=== PATIENT | female | born 1955 | race American Indian/Alaskan Native ===

== ENCOUNTER 2017-03-07 06:30 | Emergency (ER) | payer MEDICARE ==
[2017-03-07 07:29] VITALS: BP 178/81
[2017-03-07] MEDS ORDERED: TYLENOL #3 PO ONE (08:32)
--- NOTE | 2017-03-07 08:38 | Emergency Department Report ---
ED General Adult HPI - General Chief complaint: Extremity Injury, Upper Stated complaint: RIGHT SHOULDER PAIN Time Seen by Provider: 03/07/17 08:11 Source: patient Mode of arrival: Ambulatory Limitations: No Limitations - History of Present Illness Initial comments: This is a 61-year-old female nontoxic, well nourished in appearance, no acute signs of distress presents to the ED with c/o of pain to the surgical site status post dialysis catheter placement that was placed on . Patient stated after the surgery she was never received any pain medication and stated that pain is causing her to unable to sleep. Patient denies any fever, chills, redness in the area. Patient denies any chest pain, shortness of breath, numbness, tingling, headache, or stiff neck. Patient denies any allergies. Past medical history includes hypertension, diabetes. Patient stated dialysis have used the catheter twice already what last time being yesterday with no complication. MD Complaint: Pain -: days(s) (4) Radiation: non-radiation Severity scale (0 -10): 8 Quality: aching Consistency: constant Improves with: none Worsens with: none Associated Symptoms: denies other symptoms. denies: confusion, chest pain, cough, diaphoresis, fever/chills, headaches, loss of appetite, malaise, nausea/ vomiting, rash, seizure, shortness of breath, syncope, weakness Treatments Prior to Arrival: none - Related Data Home Medications Medication Instructions Recorded Confirmed Last Taken glipiZIDE [Glucotrol] 5 mg PO QDAY 10/11/12 03/26/15 03/26/15 Previous Rx's Medication Instructions Recorded Last Taken Type ALBUTEROL Inhaler [ProAir HFA 2 puff IH QID PRN #1 inha 02/22/13 Unknown Rx Inhaler] Acetaminophen/Codeine [Tylenol 1 tab PO Q6H PRN #12 tab 03/07/17 Unknown Rx /Codeine # 3 tab] Allergies Allergy/AdvReac Type Severity Reaction Status Date / Time No Known Allergies Allergy Unverified 10/11/12 14:17 ED Review of Systems ROS: Stated complaint: RIGHT SHOULDER PAIN Other details as noted in HPI Constitutional: denies: chills, fever Eyes: denies: eye pain, eye discharge, vision change ENT: denies: ear pain, throat pain Respiratory: denies: cough, shortness of breath, wheezing Cardiovascular: denies: chest pain, palpitations Endocrine: no symptoms reported Gastrointestinal: denies: abdominal pain, nausea, diarrhea Genitourinary: denies: urgency, dysuria, discharge Musculoskeletal: denies: back pain, joint swelling, arthralgia Skin: denies: rash, lesions Neurological: denies: headache, weakness, paresthesias Psychiatric: denies: anxiety, depression Hematological/Lymphatic: denies: easy bleeding, easy bruising ED Past Medical Hx - Past Medical History Previous Medical History?: Yes Hx Hypertension: Yes Hx Diabetes: Yes Hx Renal Disease: Yes (dialysis MWF) Additional medical history: dialysis MWF, last treatment Wednesday - Surgical History Past Surgical History?: Yes Additional Surgical History: Ortho, RUE fistula - Social History Smoking Status: Never Smoker Substance Use Type: None - Medications Home Medications: Home Medications Medication Instructions Recorded Confirmed Last Taken Type glipiZIDE [Glucotrol] 5 mg PO QDAY 10/11/12 03/26/15 03/26/15 History ALBUTEROL Inhaler [ProAir HFA 2 puff IH QID PRN #1 inha 02/22/13 03/26/15 Unknown Rx Inhaler] Acetaminophen/Codeine [Tylenol 1 tab PO Q6H PRN #12 tab 03/07/17 Unknown Rx /Codeine # 3 tab] ED Physical Exam - General Limitations: No Limitations General appearance: alert, in no apparent distress - Head Head exam: Present: atraumatic, normocephalic - Eye Eye exam: Present: normal appearance Pupils: Present: normal accommodation - ENT ENT exam: Present: mucous membranes moist - Neck Neck exam: Present: normal inspection - Respiratory Respiratory exam: Present: normal lung sounds bilaterally. Absent: respiratory distress - Cardiovascular Cardiovascular Exam: Present: regular rate, normal rhythm. Absent: systolic murmur, diastolic murmur, rubs, gallop - GI/Abdominal GI/Abdominal exam: Present: soft, normal bowel sounds - Extremities Exam Extremities exam: Present: normal inspection - Back Exam Back exam: Present: normal inspection - Neurological Exam Neurological exam: Present: alert, oriented X3 - Psychiatric Psychiatric exam: Present: normal affect, normal mood - Skin Skin exam: Present: warm, dry, intact, normal color. Absent: rash - Other Other exam information: Dialysis catheter with 2 lumens to the right chest with no signs of any cellulitis, redness, or purulent drainage. Tender to touch at the site region. ED Course Vital Signs 03/07/17 07:27 Temperature 98.4 F Pulse Rate 80 Respiratory 18 Rate Blood Pressure 178/81 O2 Sat by Pulse 99 Oximetry - Reevaluation(s) Reevaluation #1: 03/07/17 08:37 Patient is speaking in full sentences with no signs of distress noted. ED Medical Decision Making - Medical Decision Making This is a 61-year-old female that presents with pain to the dialysis catheter site. Patient is stable and was examined by me. Patient received Tylenol 3 in the ED. Patient's which is at the bedside stated he will just the patient home after discharge due to drowsiness of Tylenol 3. I will treat patient with Tylenol 3 at discharge. Patient was instructed Follow-up with a primary care doctor in 3-5 days or if symptoms worsen and continue return to emergency room as soon as possible. At time time of discharge, the patient does not seem toxic or ill in appearance. No acute signs of distress noted. Patient agrees to discharge treatment plan of care. No further questions noted by the patient. Critical care attestation.: If time is entered above; I have spent that time in minutes in the direct care of this critically ill patient, excluding procedure time. ED Disposition Clinical Impression: Pain, postoperative, acute Disposition: DC-01 TO HOME OR SELFCARE Is pt being admited?: No Does the pt Need Aspirin: No Condition: Stable Instructions: Acetaminophen/Codeine (By mouth) Additional Instructions: Follow-up with a primary care doctor in 3-5 days or if symptoms worsen and continue return to emergency room as soon as possible. Do not operate any machinery after discharge and when to take Tylenol 3 to drowsiness. Prescriptions: Acetaminophen/Codeine [Tylenol /Codeine # 3 tab] 1 tab PO Q6H PRN #12 tab PRN Reason: Pain Referrals: PRIMARY CAREMD [Primary Care Provider] - 3-5 Days DAVID REY MD [Staff Physician] - 3-5 Days [facility] [Outside] - 3-5 Days [facility] - [facility]-5 Days Forms: Work/School Release Form(ED)
== END 2017-03-07 09:02 | disposition home or self-care (01) ==
LOC: ED 06:30
DX: T82.848A Pain due to vascular prosthetic devices, implants and grafts, initial encounter (principal); M25.511 Pain in right shoulder; E11.22 Type 2 diabetes mellitus with diabetic chronic kidney disease; I12.0 Hypertensive chronic kidney disease with stage 5 chronic kidney disease or end stage renal disease; N18.6 End stage renal disease
CPT/HCPCS: 99282

== ENCOUNTER 2018-12-27 01:12 | Inpatient (IN) | payer MEDICARE ==
--- NOTE | 2018-12-27 01:38 | Emergency Department Report ---
ED General Adult HPI - General Chief complaint: Arrhythmia/Palpitations Stated complaint: CHEST PAIN Time Seen by Provider: 12/27/18 01:30 Source: patient, EMS ( EMS documentation not available at time of chart dictation ), RN notes reviewed, old records reviewed Mode of arrival: Stretcher Limitations: Physical Limitation - History of Present Illness Initial comments: Primary care DrRocio: Patient can't remember Project/Production Manager Imaging: Dr. Iris Cormier Past medical history: Hypertension, diabetes, end-stage renal disease, on hemodialysis, Wednesday, , Wednesday. It is currently Wednesday morning, she reports her last episode of hemodialysis was on Wednesday. The patient is a 63-year-old female. The patient is not known to this provider previously. Patient presents to the ER with complaint of chest wall pain, cough, nausea, shortness of breath. Symptoms have been going on for the past couple hours. They're constant. Shortness of breath increases with exertion and laying flat. She has chronic 3 pillow orthopnea. There is no complaint of headache, neck pain, lower abdominal pain. There are no episodes of hematemesis described. There are no urinary symptoms. No posterior leg pain or leg swelling. Positive recent trip to [place] a few weeks ago. No oral contraceptive use. She doesn't know if she takes systemic anticoagulation. She denies dietary indiscretions and endorses compliance with her outpatient medications. -: Gradual Location: chest Radiation: non-radiation Quality: aching Consistency: constant Improves with: other Worsens with: other Associated Symptoms: other - Related Data Home Medications Medication Instructions Recorded Confirmed Last Taken glipiZIDE [Glucotrol] 5 mg PO QDAY 10/11/12 03/26/15 03/26/15 Previous Rx's Medication Instructions Recorded Last Taken Type ALBUTEROL Inhaler (OR & NICU) 2 puff IH QID PRN #1 inha 02/22/13 Unknown Rx [ProAir HFA Inhaler] Acetaminophen/Codeine [Tylenol 1 tab PO Q6H PRN #12 tab 03/07/17 Unknown Rx /Codeine # 3 tab] Cyclobenzaprine HCl [Flexeril 5 MG 5 mg PO BID PRN #10 tab 10/14/17 Unknown Rx TAB] HYDROcodone/APAP 5-325 [[place] 1 each PO Q6HR PRN #12 tablet 10/14/17 Unknown Rx 5/325] ALBUTEROL NEB's [Proventil 0.083% 2.5 mg IH Q6H PRN #90 vial 01/01/18 Unknown Rx NEBS] levoFLOXacin [Levaquin TAB] 500 mg PO QDAY #7 tablet 01/01/18 Unknown Rx predniSONE [Deltasone] 2 tab PO QDAY 5 Days #10 tab 01/01/18 Unknown Rx Allergies Allergy/AdvReac Type Severity Reaction Status Date / Time No Known Allergies Allergy Verified 10/14/17 12:18 ED Review of Systems ROS: Stated complaint: CHEST PAIN Other details as noted in HPI Constitutional: malaise, weakness ENT: congestion Respiratory: shortness of breath Cardiovascular: chest pain, edema Gastrointestinal: abdominal pain, nausea Genitourinary: denies: dysuria Musculoskeletal: myalgia Skin: denies: lesions Neurological: weakness Psychiatric: anxiety ED Past Medical Hx - Past Medical History Previous Medical History?: Yes Hx Hypertension: Yes Hx Diabetes: Yes Hx Renal Disease: Yes (dialysis TT) Additional medical history: dialysis MWF, last treatment Wednesday - Surgical History Past Surgical History?: Yes Additional Surgical History: Ortho, RUE fistula - Social History Smoking Status: Never Smoker - Medications Home Medications: Home Medications Medication Instructions Recorded Confirmed Last Taken Type glipiZIDE [Glucotrol] 5 mg PO QDAY 10/11/12 03/26/15 03/26/15 History ALBUTEROL Inhaler (OR & NICU) 2 puff IH QID PRN #1 inha 02/22/13 03/26/15 U nknown Rx [ProAir HFA Inhaler] Acetaminophen/Codeine [Tylenol 1 tab PO Q6H PRN #12 tab 03/07/17 Unknown Rx /Codeine # 3 tab] Cyclobenzaprine HCl [Flexeril 5 MG 5 mg PO BID PRN #10 tab 10/14/17 Unknown Rx TAB] HYDROcodone/APAP 5-325 [[place] 1 each PO Q6HR PRN #12 tablet 10/14/17 Unknown Rx 5/325] ALBUTEROL NEB's [Proventil 0.083% 2.5 mg IH Q6H PRN #90 vial 01/01/18 Unknown Rx NEBS] levoFLOXacin [Levaquin TAB] 500 mg PO QDAY #7 tablet 01/01/18 Unknown Rx predniSONE [Deltasone] 2 tab PO QDAY 5 Days #10 tab 01/01/18 Unknown Rx ED Physical Exam - General Limitations: Physical Limitation General appearance: alert, anxious, in distress, obese - Head Head exam: Present: atraumatic, normocephalic - Eye Eye exam: Present: normal appearance, EOMI. Absent: nystagmus - ENT ENT exam: Present: normal exam, normal orophraynx, mucous membranes moist, normal external ear exam - Neck Neck exam: Present: normal inspection, full ROM. Absent: tenderness, meningismus - Respiratory Respiratory exam: Present: respiratory distress, rales, accessory muscle use - Cardiovascular Cardiovascular Exam: Present: normal rhythm, tachycardia, normal heart sounds, JVD (4 cm jugular venous distention noted bilaterally 4 cm JVD noted bilatera lly). Absent: systolic murmur, diastolic murmur, rubs, gallop - GI/Abdominal GI/Abdominal exam: Present: soft. Absent: distended, tenderness, guarding, rebound, rigid, pulsatile mass - Extremities Exam Extremities exam: Present: normal inspection (right upper extremity fistula noted, with no redness, pus or streaking), full ROM, other (2+ pulses noted in the bilateral upper, lower extremities. There is no long bone tenderness. Musculoskeletal compartments are soft. The pelvis is stable.). Absent: calf tenderness - Back Exam Back exam: Present: normal inspection, full ROM. Absent: tenderness, CVA tenderness (L), paraspinal tenderness, vertebral tenderness - Neurological Exam Neurological exam: Present: alert, oriented X3, other (there is no facial droop. The tongue is midline. Extraocular movements are intact bilaterally. Patient speaking in full complete sentences. Shoulder shrug is intact bilaterally. Hearing is grossly intact bilaterally. Visual acuity intact to finger counting and color perception at a close distance. 5/5 strength 4 extremities. Sensation intact to light touch in 4 extremities.). Absent: motor sensory deficit - Psychiatric Psychiatric exam: Present: anxious - Skin Skin exam: Present: warm, dry, intact, normal color. Absent: rash ED Course Vital Signs 12/27/18 12/27/18 12/27/18 01:23 01:30 01:35 Temperature 98.5 F 98.5 F Pulse Rate 131 H 124 H Respiratory 15 26 H Rate Blood Pressure 213/100 O2 Sat by Pulse 94 95 Oximetry 12/27/18 12/27/18 12/27/18 01:46 01:54 02:00 Temperature Pulse Rate 114 H 105 H Respiratory 28 H 16 23 Rate Blood Pressure 213/100 193/96 O2 Sat by Pulse 100 99 99 Oximetry 12/27/18 12/27/18 12/27/18 02:02 02:16 02:30 Temperature Pulse Rate 119 H 99 H 102 H Respiratory 28 H 19 23 Rate Blood Pressure 193/96 182/87 196/97 O2 Sat by Pulse 100 100 100 Oximetry 12/27/18 12/27/18 02:46 03:00 Temperature Pulse Rate 103 H 95 H Respiratory 22 11 L Rate Blood Pressure 189/90 189/90 O2 Sat by Pulse 100 100 Oximetry - Reevaluation(s) Reevaluation #1: 12/27/18 01:53 Differential diagnosis, including not limited to: Hypertensive urgency, hypertensive cardiomyopathy, flash pulmonary edema, cardiorenal syndrome Assessment and plan: 63-year-old female with hypoxia, tachycardia, crackles, rales, JVD, suspect manifestation on flash pulmonary edema versus cardiorenal syndrome spectrum She'll be started on BiPAP, and nitroglycerin drip. X-ray the chest, laboratory studies are pending. We will reassess after data points have resulted, we've recommended admission to the medical service once initial data points have resulted. The patient endorses understanding Reevaluation #2: 12/27/18 02:22 Patient resting comfortably and respiratory distress appears to be improved. Blood pressure improving, heart rate in the low 100s. X-ray the chest reviewed and appreciated, right lower lobe pneumonia is suspected, in conjunction with pulmonary edema. Patient has evidence of florid volume overload, requiring preload and afterload reduction, and positive pressure ventilation, therefore, she will not benefit from aggressive fluid bolus. Reevaluation #3: 12/27/18 02:35 Discussed with Hospital physician, Dr. Al, who has accepted the patient to the medical service. - Consultations Consultation #1: 12/27/18 03:13 d/w Dr Baeza who will follow inpatient ED Medical Decision Making - Lab Data Result diagrams: 12/27/18 01:44 12/27/18 01:44 Vital Signs 12/27/18 12/27/18 12/27/18 01:23 01:30 01:35 Temperature 98.5 F 98.5 F Pulse Rate 131 H 124 H Respiratory 15 26 H Rate Blood Pressure 213/100 O2 Sat by Pulse 94 95 Oximetry - EKG Data -: EKG Interpreted by Or EKG shows normal: sinus rhythm Rate: tachycardia - EKG Data 12/27/18 01:54 The Sinus tachycardia, 123 bpm, normal axis, QTC 442 ms, motion artifact, atrial enlargement, left ventricular hypertrophy, not a STEMI - Radiology Data Radiology results: pending, report reviewed, image reviewed Print Report Referring Physician: NORA LARSEN Patient Name: SHIELA FINN Date of : 1955 Sex: Female Report Date: 2018-12-27 Report Status: Finalized Findings [facility] [address] [place] [address] XRay Report Signed Patient: SHIELA FINN MR#: [id number] : 1955 Acct:[id number] Age/Sex: 63 / F ADM Date: 12/27/18 Loc: ED Attending Dr: Ordering Physician: NORA LARSEN MD Date of Service: 12/27/18 Procedure(s): XR chest 1V ap Accession Number(s): [id number] cc: NORA LARSEN MD Fluoro Time In Minutes: CHEST 1 VIEW INDICATION: Dyspnea. COMPARISON: 02/22/2013. FINDINGS: Support devices: None. Heart: Cardiomegaly. Lungs/Pleura: Interstitial markings are increased. There is mild patchy parenchymal change at the right base. Masslike thickening is seen at the right base. Additional findings: None. IMPRESSION: 1. Mild edema. 2. Atelectasis versus developing pneumonia right base. 3. Pleural-based density left chest. CT chest recommended for further evaluation. Signer Name: Terence Bowen MD Signed: 12/27/2018 2:09 AM Workstation Name: [id number] Transcribed By: ES Dictated By: Terence Bowen MD Electronically Authenticated By: Terence Bowen MD Signed Date/Time: 12/27/18208 DD/ 6 Critical Care Time: Yes Critical care time in (mins) excluding proc time.: 60 Critical care attestation.: If time is entered above; I have spent that time in minutes in the direct care of this critically ill patient, excluding procedure time. ED Disposition Clinical Impression: Cardiorenal syndrome with renal failure, Flash pulmonary edema Disposition: OP ADMIT IP TO THIS HOSP Is pt being admited?: Yes Condition: Serious Instructions: Pulmonary Edema (ED) Referrals: PRIMARY CARE, [Primary Care Provider] - 3-5 Days
[2018-12-27] MEDS ORDERED: NITROGLYCERIN DRIP 50 MG/250 ML BOTTLE IV SCH (02:00)
[2018-12-27 02:12] LABS: Basophils # (Auto) 0.1 K/mm3 (0.0-0.1); Basophils % (Auto) 0.6 % (0.0-1.8); Eosinophils # (Auto) 0.2 K/mm3 (0.0-0.4); Eosinophils % (Auto) 2.6 % (0.0-4.3); Hematocrit 35.4 % (30.3-42.9); Hemoglobin 11.7 gm/dl (10.1-14.3); Lymphocytes # (Auto) 1.1 K/mm3 (1.2-5.4); Lymphocytes % (Auto) 12.7 % (13.4-35.0); Mean Corpuscular HGB Conc 33 % (30-34); Mean Corpuscular Volume 100 fl (79-97); Monocytes # (Auto) 0.3 K/mm3 (0.0-0.8); Monocytes % (Auto) 3.9 % (0.0-7.3); Platelet Count 176 K/mm3 (140-440); Red Blood Count 3.55 M/mm3 (3.65-5.03)
--- NOTE | 2018-12-27 02:14 | XRay Report ---
CHEST 1 VIEW INDICATION: Dyspnea. COMPARISON: 02/22/2013. FINDINGS: Support devices: None. Heart: Cardiomegaly. Lungs/Pleura: Interstitial markings are increased. There is mild patchy parenchymal change at the rig ht base. Masslike thickening is seen at the right base. Additional findings: None. IMPRESSION: 1. Mild edema. 2. Atelectasis versus developing pneumonia right base. 3. Pleural-based density left chest. CT chest recommended for further evaluation. Signer Name: Terence Bowen MD Signed: 12/27/2018 2:09 AM Workstation Name: [id number]
[2018-12-27 02:22] LABS: Albumin 4.5 g/dL (3.9-5); Calcium 9.4 mg/dL (8.4-10.2)
[2018-12-27 02:24] LABS: INR 0.96 (0.87-1.13)
[2018-12-27 02:25] LABS: Partial Thromboplastin Time 29.2 Sec. (24.2-36.6)
[2018-12-27] MEDS ORDERED: DEXTROSE 50% IN WATER (25GM) 50 ML SYRINGE IV PRN (02:58)
[2018-12-27] MEDS ORDERED: ONDANSETRON 4 MG/2 ML INJ IV PRN (02:58)
--- NOTE | 2018-12-27 03:02 | History and Physical Report ---
History of Present Illness Date of examination: 12/27/18 History of present illness: 63 -year-old lady is here for hypertention, diabetes, end-stage renal disease on dialysis Wednesday, comes to the emergency room with complaints of chest pain located in the epigastric area that started when she was about good sleep. She describes the pain as dull, constant, intensity, 10, no radiation, cannot identify exacerbating or relieving factors. Admits to nausea, shortness of breath, diaphoresis, palpitation. She had a stress test done a year ago. Patient was started on BiPAP and nitroglycerin drip in the emergency room. Coumplains of cough productive of white phlegm review Of Systems: Constitutional: no weight loss, fever, chills Ears, eyes, nose, mouth and throat: no nasal congestion, no nasal discharge, no sinus pressure, blurry vision, diplopia Neck: No neck pain or rigidity. Cardiovascular: No palpitations, chest pain Respiratory: No cough, shortness of breath Gastrointestinal: No hematochezia, abdominal pain Genitourinary : no dysuria, frequency , hematuria Musculoskeletal: no muscle ache , joint pain Integumentary: no rash, no pruritis Neurological: no parathesias, focal weakness Endocrine: no cold or heat intolerance, no polyuria or polydipsia Hematologic/Lymphatic: no easy bruising, no easy bleeding, no gland swelling Allergic/Immunologic: no urticaria, no angioedema. PAST MEDICAL HISTORY:hypertention, diabetes, end-stage renal disease on dialysis PAST SURGICAL HISTORY: AVF FAMILY HISTORY:hypertension, diabetes SOCIAL HISTORY: Denies tobacco, drugs, alcohol Medications and Allergies Allergies Allergy/AdvReac Type Severity Reaction Status Date / Time No Known Allergies Allergy Verified 10/14/17 12:18 Home Medications Medication Instructions Recorded Confirmed Last Taken Type glipiZIDE [Glucotrol] 5 mg PO QDAY 10/11/12 03/26/15 03/26/15 History ALBUTEROL Inhaler (OR & NICU) 2 puff IH QID PRN #1 inha 02/22/13 03/26/15 Unknown Rx [ProAir HFA Inhaler] Acetaminophen/Codeine [Tylenol 1 tab PO Q6H PRN #12 tab 03/07/17 Unknown Rx /Codeine # 3 tab] Cyclobenzaprine HCl [Flexeril 5 MG 5 mg PO BID PRN #10 tab 10/14/17 Unknown Rx TAB] HYDROcodone/APAP 5-325 [[place] 1 each PO Q6HR PRN #12 tablet 10/14/17 Unknown Rx 5/325] ALBUTEROL NEB's [Proventil 0.083% 2.5 mg IH Q6H PRN #90 vial 01/01/18 Unknown Rx NEBS] levoFLOXacin [Levaquin TAB] 500 mg PO QDAY #7 tablet 01/01/18 Unknown Rx predniSONE [Deltasone] 2 tab PO QDAY 5 Days #10 tab 01/01/18 Unknown Rx Active Meds: Active Medications Acetaminophen (Tylenol) 650 mg PO Q4H PRN PRN Reason: Pain MILD(1-3)/Fever >100.5/VILLAFUERTE Nitroglycerin/Dextrose (Tridil Drip 50mg/250ml) 50 mg in 250 mls @ 3 mls/hr IV TITR STERLING; Protocol Last Admin: 12/27/18 01:53 Dose: 10 mcg/min, 3 mls/hr Documented by: Levofloxacin/Dextrose (Levaquin 750mg/150ml) 750 mg in 150 mls @ 100 mls/hr IV ONCE ONE; Protocol Stop: 12/27/18 03:51 Ondansetron HCl (Zofran) 4 mg IV Q8H PRN PRN Reason: Nausea And Vomiting Exam - Physical Exam Narrative exam: General Apperance: The patient sitting in bed no acute distress HEENT: Normocephalic, atraumatic. Pupils equally round and reactive to light, extraocular movement intact, and no sclericterus or JVD or thyromegaly or nodule. Neck supple, no carotid bruit, mucous membranes moist, no exudate or erythema Heart: S1-S2, regular is rhythm Lungs: crackles, bilaterally, breathing comfortable Abdomen: Positive bowel sounds, soft, nontender, nondistended, no organomegaly Extremities: No edema cyanosis clubbing Skin: no rash, nodule, warm and dry Neuro:CN 2 -12 intact, motor/sensory intact, speech is fluent - Constitutional Vitals: Temp Pulse Resp BP Pulse Ox 98.5 F 119 H 28 H 193/96 100 12/27/18 01:35 12/27/18 02:02 12/27/18 02:02 12/27/18 02:02 12/27/18 02:02 Results - Labs CBC & Chem 7: 12/27/18 01:44 12/27/18 01:44 Labs: Abnormal lab results 12/27/18 12/27/18 12/27/18 Range/Units 01:44 01:44 01:44 RBC 3.55 L (3.65-5.03) M/mm3 MCV 100 H (79-97) fl MCH 33 H (28-32) pg RDW 16.0 H (13.2-15.2) % Lymph % (Auto) 12.7 L (13.4-35.0) % Lymph # 1.1 L (1.2-5.4) K/mm3 Seg Neutrophils % 80.2 H (40.0-70.0) % Chloride 91.5 L (98-107) mmol/L BUN 76 H (7-17) mg/dL Creatinine 12.5 H (0.7-1.2) mg/dL Glucose 181 H (65-100) mg/dL Total Creatine Kinase 394 H (30-135) units/L Troponin T 0.145 H* (0.00-0.029) ng/mL NT-Pro-B Natriuret Pep 80595 H (0-900) pg/mL - Imaging and Cardiology EKG: image reviewed Chest x-ray: report reviewed Assessment and Plan Asessment Acute respiratory failure Pneumonia Fluid overload Chest pain Abnormal chest x-ray Hypertension uncontrolled Diabetes ESRD Plan Admit to medicine Continue BIPAP, Consult renal for dialysis, check CT chest Check cardiac enzymes,consult cardiology Continue nitroglycerin drip, consult critical care Check fingersticks, start sliding scale DVT prophalaxis
[2018-12-27] MEDS ORDERED: FAMOTIDINE 20 MG/2 ML INJ IV ONE ×2 (03:14→03:17)
[2018-12-27] MEDS ORDERED: diphenhydrAMINE 50 MG/ML VIAL ONE (03:14)
[2018-12-27] MEDS ORDERED: methylPREDNISolone Sod Succinate 125 MG/2 ML INJ ONE (03:14)
[2018-12-27] MEDS ORDERED: diphenhydrAMINE 50 MG/ML VIAL IV ONE (03:17)
[2018-12-27] MEDS ORDERED: methylPREDNISolone Sod Succinate 125 MG/2 ML INJ IV ONE (03:17)
--- NOTE | 2018-12-27 04:13 | Cat Scan Report ---
CT chest wo con INDICATION: MAIN: abnormal CXR, CHEST PAIN, SHORTNESS OF BREATH. TECHNIQUE: All CT scans at this location are performed using the following dose modulation technique: Automated exposure control. CONTRAST: None. COMPARISON: Chest x-ray earlier the same day. FINDINGS: The lungs contain patchy infiltrates and groundglass opacity negative for dense infiltrate or mass. Small basilar effusions have associated atelectasis. The mediastinum contains small nodes are likely reactive. Negative for stones this is mass. Imaging of the upper abdomen demonstrates changes of chronic renal failure including atrophy and smal l nonobstructing stones in bilateral cysts. A 2.2 cm lesion at the upper pole of the left kidney is n ot a simple cyst (series 2, image 113). IMPRESSION: 1. Patchy infiltrates bilaterally typical of multifocal pneumonia to include atypical organisms. 2. Small basilar effusions with associated atelectasis. 3. Probable reactive mediastinal nodes. 4. Changes of chronic renal failure including atrophy and small nonobstructing stones. 5. Indeterminate lesion upper pole left kidney. Signer Name: Terence Bowen MD Signed: 12/27/2018 4:09 AM Workstation Name: [id number]
[2018-12-27 04:52] LABS: Creatine Kinase MB 13.3 ng/mL (0.0-4.0)
[2018-12-27 05:20] LABS: Chol/HDL Ratio 3.8 %
[2018-12-27] MEDS ORDERED: SODIUM CHLORIDE 0.9% 100 ML IV PRN (05:29)
[2018-12-27] MEDS ORDERED: ACETAMINOPHEN 325 MG TAB ONE (06:25)
[2018-12-27] MEDS: ACETAMINOPHEN 325 MG TAB PO PRN (06:26)
[2018-12-27 06:59] LABS: Hepatitis B Surface Antigen Non-Reactive (Negative); Hepatitis C Virus Antibody Non-Reactive (NonReactive)
--- NOTE | 2018-12-27 09:31 | Consultation ---
History of Present Illness - Reason for Consult end stage renal disease - History of Present Illness 63-year-old lady with medical history significant for hypertension, diabetes mellitus type 2, end stage renal disease on hemodialysis on Wednesday via a right AVF admitted with complaints of shortness of breath and chest pain also with elevated blood pressure, last dialysis was Wednesday she denies any missed treatments Denies any complete dialysis session She reports associated orthopnea, PND she denies any fevers chills denies any nausea vomiting diarrhea denies any headaches denies any edema patient required BiPAP on admission Past History Past Medical History: No medical history Past Surgical History: No surgical history Social history: no significant social history Medications and Allergies Allergies Allergy/AdvReac Type Severity Reaction Status Date / Time No Known Allergies Allergy Verified 10/14/17 12:18 Home Medications Medication Instructions Recorded Confirmed Last Taken Type glipiZIDE [Glucotrol] 5 mg PO QDAY 10/11/12 03/26/15 03/26/15 History ALBUTEROL Inhaler (OR & NICU) 2 puff IH QID PRN #1 inha 02/22/13 03/26/15 Unknown Rx [ProAir HFA Inhaler] Acetaminophen/Codeine [Tylenol 1 tab PO Q6H PRN #12 tab 03/07/17 Unknown Rx /Codeine # 3 tab] Cyclobenzaprine HCl [Flexeril 5 MG 5 mg PO BID PRN #10 tab 10/14/17 Unknown Rx TAB] HYDROcodone/APAP 5-325 [[place] 1 each PO Q6HR PRN #12 tablet 10/14/17 Unknown Rx 5/325] ALBUTEROL NEB's [Proventil 0.083% 2.5 mg IH Q6H PRN #90 vial 01/01/18 Unknown Rx NEBS] levoFLOXacin [Levaquin TAB] 500 mg PO QDAY #7 tablet 01/01/18 Unknown Rx predniSONE [Deltasone] 2 tab PO QDAY 5 Days #10 tab 01/01/18 Unknown Rx Active Meds: Active Medications Acetaminophen (Tylenol) 650 mg PO Q4H PRN PRN Reason: Pain MILD(1-3)/Fever >100.5/VILLAFUERTE Last Admin: 12/27/18 06:26 Dose: 650 mg Documented by: Azithromycin (Zithromax) 500 mg PO QDAY [facility] Dextrose (D50w (25gm) Syringe) 0 ml IV Q30MIN PRN; Protocol PRN Reason: Hypoglycemia Enoxaparin Sodium (Enoxaparin) 30 mg SUB-Q QDAY [facility] Nitroglycerin/Dextrose (Tridil Drip 50mg/250ml) 50 mg in 250 mls @ 3 mls/hr IV TITR [facility]; Protocol Last Titration: 12/27/18 04:00 Dose: 60 mcg/min, 18 mls/hr Documented by: Sodium Chloride (Nacl 0.9%) 100 mls @ 999 mls/hr IV SUZETTE PRN PRN Reason: Hypotension Ceftriaxone Sodium (Rocephin/Ns 1 Gm/50 Ml) 1 gm in 50 mls @ 100 mls/hr IV Q24HR [facility]; Protocol Insulin Human Lispro (Humalog) 0 unit SUB-Q ACHS [facility]; Protocol Ondansetron HCl (Zofran) 4 mg IV Q8H PRN PRN Reason: Nausea And Vomiting Sodium Chloride (Sodium Chloride Flush Syringe 10 Ml) 10 ml IV BID [facility] Sodium Chloride (Sodium Chloride Flush Syringe 10 Ml) 10 ml IV PRN PRN PRN Reason: LINE FLUSH Review of Systems Constitutional: no weight loss, no weight gain, no fever, no chills Ears, nose, mouth and throat: no deferred, no ear pain, no ear discharge Cardiovascular: no chest pain, no orthopnea Respiratory: cough Gastrointestinal: no abdominal pain, no nausea, no vomiting Musculoskeletal: no neck stiffness, no neck pain Integumentary: no deferred, no rash, no blisters Neurological: no head injury, no transient paralysis Psychiatric: no anxiety, no memory loss Endocrine: no cold intolerance, no heat intolerance Hematologic/Lymphatic: no easy bruising, no easy bleeding Exam - Vital Signs Vital signs: Vital Signs Pulse Resp Pulse Ox 131 H 15 94 12/27/18 01:23 12/27/18 01:23 12/27/18 01:23 - General Appearance General appearance: well-developed, well-nourished EENT: ATNC, PERRL Neck: Present: neck supple Respiratory: Decreased Breath Sounds, Increased Expir. Phase Heart: regular, S1S2 Gastrointestinal: Present: normal, normoactive bowel sounds Integumentary: no rash Neurologic: alert and oriented x3, CN 3-12 intact Musculoskeletal: Present: deferred Psychiatric: mood/affect appropriate Results - Lab Results 12/27/18 01:44 12/27/18 01:44 Most recent lab results Calcium 9.4 mg/dL (8.4-10.2) 12/27/18 01:44 Magnesium 2.30 mg/dL (1.7-2.3) 12/27/18 01:44 - Image Kidney/bladder ultrasound: other (I reviewed chest x-ray which showed bilateral right greater than left patchy opacities) Assessment and Plan - Patient Problems (1) Flash pulmonary edema Current Visit: Yes Status: Acute Plan to address problem: pulmonary edema I reviewed chest x-ray with evidence of pulmonary edema we'll initiate urgent dialysis was initiated Continue supplemental oxygen as needed we will wean oxygen as tolerated (2) Diabetes 1.5, managed as type 2 Current Visit: No Status: Chronic Plan to address problem: Diabetes mellitus type 2 Continue medications Monitor fingerstick (3) ESRD (end stage renal disease) on dialysis Current Visit: No Status: Chronic Plan to address problem: End-stage renal disease on dialysis We'll initiate dialysis (4) HTN (hypertension) Current Visit: Yes Status: Acute Qualifiers: Hypertension type: essential hypertension Qualified Code(s): I10 - Essential (primary) hypertension Plan to address problem: Hypertension uncontrolled We'll plan to optimize volume status with dialysis Resume medication
[2018-12-27] MEDS ORDERED: ENOXAPARIN 30 MG/0.3 ML INJ SUB-Q SCH (10:00)
--- NOTE | 2018-12-27 10:23 | Consultation ---
History of Present Illness Consult date: 12/27/18 Consult reason: congestive heart failure, elevated troponin History of present illness: The patient claims that she has been experiencing cough productive of clear sputum for the past 2 weeks. She went to bed about 11 PM last night and woke up suddenly at about 2 AM with progressive shortness of breath and substernal chest tightness. She experienced nausea and diaphoresis as well. Her chest x-ray showed bilateral infiltrates. There is no fever or chills. Past History Past Medical History: No medical history, diabetes, ESRD, hypertension, hyperlipidemia Past Surgical History: Other (creation of right upper extremity AV fistula; pericardiocentesis) Social history: denies: smoking, alcohol abuse Family history: denies: CAD Medications and Allergies Allergies Allergy/AdvReac Type Severity Reaction Status Date / Time No Known Allergies Allergy Verified 10/14/17 12:18 Home Medications Medication Instructions Recorded Confirmed Last Taken Type glipiZIDE [Glucotrol] 5 mg PO QDAY 10/11/12 03/26/15 03/26/15 History ALBUTEROL Inhaler (OR & NICU) 2 puff IH QID PRN #1 inha 02/22/13 03/26/15 Unknown Rx [ProAir HFA Inhaler] Acetaminophen/Codeine [Tylenol 1 tab PO Q6H PRN #12 tab 03/07/17 Unknown Rx /Codeine # 3 tab] Cyclobenzaprine HCl [Flexeril 5 MG 5 mg PO BID PRN #10 tab 10/14/17 Unknown Rx TAB] HYDROcodone/APAP 5-325 [[place] 1 each PO Q6HR PRN #12 tablet 10/14/17 Unknown Rx 5/325] ALBUTEROL NEB's [Proventil 0.083% 2.5 mg IH Q6H PRN #90 vial 01/01/18 Unknown Rx NEBS] levoFLOXacin [Levaquin TAB] 500 mg PO QDAY #7 tablet 01/01/18 Unknown Rx predniSONE [Deltasone] 2 tab PO QDAY 5 Days #10 tab 01/01/18 Unknown Rx Active Meds: Active Medications Acetaminophen (Tylenol) 650 mg PO Q4H PRN PRN Reason: Pain MILD(1-3)/Fever >100.5/VILLAFUERTE Last Admin: 12/27/18 06:26 Dose: 650 mg Documented by: Azithromycin (Zithromax) 500 mg PO QDAY [facility] Dextrose (D50w (25gm) Syringe) 0 ml IV Q30MIN PRN; Protocol PRN Reason: Hypoglycemia Enoxaparin Sodium (Enoxaparin) 30 mg SUB-Q QDAY [facility] Nitroglycerin/Dextrose (Tridil Drip 50mg/250ml) 50 mg in 250 mls @ 3 mls/hr IV TITR [facility]; Protocol Last Titration: 12/27/18 04:00 Dose: 60 mcg/min, 18 mls/hr Documented by: Sodium Chloride (Nacl 0.9%) 100 mls @ 999 mls/hr IV SUZETTE PRN PRN Reason: Hypotension Ceftriaxone Sodium (Rocephin/Ns 1 Gm/50 Ml) 1 gm in 50 mls @ 100 mls/hr IV Q24HR [facility]; Protocol Insulin Human Lispro (Humalog) 0 unit SUB-Q ACHS [facility]; Protocol Ondansetron HCl (Zofran) 4 mg IV Q8H PRN PRN Reason: Nausea And Vomiting Sodium Chloride (Sodium Chloride Flush Syringe 10 Ml) 10 ml IV BID [facility] Sodium Chloride (Sodium Chloride Flush Syringe 10 Ml) 10 ml IV PRN PRN PRN Reason: LINE FLUSH Review of Systems Constitutional: no fever, no chills Ears, nose, mouth and throat: no ear pain, no ear discharge, no sore throat Cardiovascular: chest pain, orthopnea, shortness of breath, no palpitations, no edema, no lightheadedness Respiratory: cough with sputum, shortness of breath, no hemoptysis Gastrointestinal: nausea, no abdominal pain, no vomiting, no diarrhea, no constipation Genitourinary Female: no dysuria, no urinary frequency Rectal: no pain, no bleeding Musculoskeletal: no neck stiffness, no neck pain, no myalgias Integumentary: no rash, no pruritis Neurological: no weakness, no parathesias, no headaches Endocrine: no cold intolerance, no heat intolerance Hematologic/Lymphatic: no easy bruising, no easy bleeding Allergic/Immunologic: no urticaria, no wheezing Physical Examination Vital Signs Last Vital Signs Temp 98.8 F 12/27/18 06:45 Pulse 88 12/27/18 10:00 Resp 14 12/27/18 09:43 BP 135/87 12/27/18 10:00 Pulse Ox 100 12/27/18 09:43 General appearance: no acute distress HEENT: Positive: EOMI, Normocephaly, Mucus Membranes Moist Neck: Positive: neck supple, trachea midline, JVD/HJR (elevated) Cardiac: Positive: Reg Rate and Rhythm, S1/S2 Lungs: Positive: clear to auscultation Neuro: Positive: Grossly Intact Abdomen: Positive: Soft, Active Bowel Sounds. Negative: Tender Skin: Positive: Clear. Negative: Rash Musculoskeletal: Normal Range of Motion Extremities: Present: normal. Absent: edema Results 12/27/18 01:44 12/27/18 01:44 Cardiac Enzymes 12/27/18 12/27/18 12/27/18 Range/Units 01:44 04:09 09:21 AST 32 (5-40) units/L CK-MB (CK-2) 13.3 H 26.0 H (0.0-4.0) ng/mL Coagulation 12/27/18 Range/Units 01:44 PT 12.7 (12.2-14.9) Sec. INR 0.96 (0.87-1.13) APTT 29.2 (24.2-36.6) Sec. Lipids 12/27/18 Range/Units 01:44 Triglycerides 146 (2-149) mg/dL Cholesterol 175 (50-199) mg/dL HDL Cholesterol 46 (40-59) mg/dL Cholesterol/HDL Ratio 3.80 % CBC 12/27/18 Range/Units 01:44 WBC 8.3 (4.5-11.0) K/mm3 RBC 3.55 L (3.65-5.03) M/mm3 Hgb 11.7 (10.1-14.3) gm/dl Hct 35.4 (30.3-42.9) % Plt Count 176 (140-440) K/mm3 Lymph # 1.1 L (1.2-5.4) K/mm3 [place] # 0.3 (0.0-0.8) K/mm3 Eos # 0.2 (0.0-0.4) K/mm3 Baso # 0.1 (0.0-0.1) K/mm3 Comprehensive Metabolic Panel 12/27/18 Range/Units 01:44 Sodium 142 (137-145) mmol/L Potassium 4.0 (3.6-5.0) mmol/L Chloride 91.5 L (98-107) mmol/L Carbon Dioxide 25 (22-30) mmol/L BUN 76 H (7-17) mg/dL Creatinine 12.5 H (0.7-1.2) mg/dL Glucose 181 H (65-100) mg/dL Calcium 9.4 (8.4-10.2) mg/dL AST 32 (5-40) units/L ALT 20 (7-56) units/L Alkaline Phosphatase 104 (35-129) units/L Total Protein 7.5 (6.3-8.2) g/dL Albumin 4.5 (3.9-5) g/dL - Imaging and Cardiology EKG: image reviewed EKG interpretations - Telemetry EKG Rhythm: Sinus Tachycardia - EKG Sinus rhythms and dysrhythmias: sinus tachycardia Assessment and Plan Initiate antihypertensive regimen. Apply topical nitrates. ARB if okay from nephrology standpoint. Obtain echocardiogram. Consider Lexiscan stress MPI in a.m. - Patient Problems (1) Acute heart failure Current Visit: Yes Status: Acute (2) Chest pain Current Visit: Yes Status: Acute (3) Non-STEMI (non-ST elevated myocardial infarction) Current Visit: Yes Status: Acute (4) Cough Current Visit: Yes Status: Acute (5) HTN (hypertension) Current Visit: Yes Status: Chronic Qualifiers: Hypertension type: essential hypertension Qualified Code(s): I10 - Essential (primary) hypertension (6) ESRD (end stage renal disease) on dialysis Current Visit: Yes Status: Chronic (7) Diabetes mellitus Current Visit: Yes Status: Chronic Qualifiers: Diabetes mellitus type: type 2
--- NOTE | 2018-12-27 13:01 | Progress Note ---
Assessment and Plan Assessment and plan: Patient is a 63 -year-old AA woman with a history of hypertention, type 2 DM, end-stage renal disease on hemodialysis Wednesday, who presents to [facility] ED with SOB, chest pains and productive whitish phlegm cough. * pCXR IMPRESSION: 1. Mild edema. 2. Atelectasis versus developing pneumonia right base. 3. Pleural-based density left chest. CT chest recommended for further evaluation. * CT chest without contrast IMPRESSION: 1. Patchy infiltrates bilaterally typical of multifocal pneumonia to include atypical organisms. 2. Small basilar effusions with associated atelectasis. 3. Probable reactive m ediastinal nodes. 4. Changes of chronic renal failure including atrophy and small nonobstructing stones. 5. Indeterminate lesion upper pole left kidney. Acute respiratory failure, needing Non-Invasive Positive Pressure Ventilation: weaned off bipap, stable on NC, so i downgraded to medical floor Multifocal Pneumonia, bilateral: treat with iv abx Fluid overload: treat with ultrafiltration HD Chest pain with Type 2 AR: Cardiology consulted, input noted, stress test soon Hypertension Malignancy with urgency/uncontrolled: change NTG drip to paste and add iv prn hydralazine Diabetes mellitus: ssi, ada, accuchecks ESRD needing HD: Nephrology to manage DVT ppx: sq heparin History Interval history: Patient was seen and examined. Follow-up on current diagnosis of respiratory failure. No overnight events reported to me. Patient denies any chest pain, shortness breath, nausea/vomiting or severe headaches. Imaging, nursing note, chart, labs and old chart reviewed. Discussed with patient. Hospitalist Physical - Physical exam Narrative exam: Gen: WDWN, NAD, Awake, Alert, Orientated HEENT: NCAT, EOMI, PERRL, OP Clear Neck: supple, no adenopathy, no thyromegaly, no JVD CVS/Heart: RRR, normal S1S2, pulses present bilaterally Chest/Lungs: diminished bs bilaterally, Symmetrical chest expansion, good air entry bilaterally GI/Abdomen: soft, NTND, good bowel sounds, no guarding or rebound /Bladder: no suprapubic tenderness, no CVA or paraspinal tenderness Extermity/Skin: no c/c/e, no obvious rash MSK: FROM x 4 Neuro: CN 2-12 grossly intact, no new focal deficits Psych: calm - Constitutional Vitals: Temp Pulse Resp BP Pulse Ox 98.8 F 83 16 155/54 100 12/27/18 06:45 12/27/18 10:15 12/27/18 10:15 12/27/18 10:15 12/27/18 09:43 General appearance: Present: no acute distress Results - Labs CBC & Chem 7: 12/27/18 01:44 12/27/18 01:44 Labs: Laboratory Last Values WBC 8.3 K/mm3 (4.5-11.0) 12/27/18 01:44 RBC 3.55 M/mm3 (3.65-5.03) L 12/27/18 01:44 Hgb 11.7 gm/dl (10.1-14.3) 12/27/18 01:44 Hct 35.4 % (30.3-42.9) 12/27/18 01:44 MCV 100 fl (79-97) H 12/27/18 01:44 MCH 33 pg (28-32) H 12/27/18 01:44 MCHC 33 % (30-34) 12/27/18 01:44 RDW 16.0 % (13.2-15.2) H 12/27/18 01:44 Plt Count 176 K/mm3 (140-440) 12/27/18 01:44 Lymph % (Auto) 12.7 % (13.4-35.0) L 12/27/18 01:44 [place] % (Auto) 3.9 % (0.0-7.3) 12/27/18 01:44 Eos % (Auto) 2.6 % (0.0-4.3) 12/27/18 01:44 Baso % (Auto) 0.6 % (0.0-1.8) 12/27/18 01:44 Lymph # 1.1 K/mm3 (1.2-5.4) L 12/27/18 01:44 [place] # 0.3 K/mm3 (0.0-0.8) 12/27/18 01:44 Eos # 0.2 K/mm3 (0.0-0.4) 12/27/18 01:44 Baso # 0.1 K/mm3 (0.0-0.1) 12/27/18 01:44 Seg Neutrophils % 80.2 % (40.0-70.0) H 12/27/18 01:44 Seg Neutrophils # 6.6 K/mm3 (1.8-7.7) 12/27/18 01:44 PT 12.7 Sec. (12.2-14.9) 12/27/18 01:44 INR 0.96 (0.87-1.13) 12/27/18 01:44 APTT 29.2 Sec. (24.2-36.6) 12/27/18 01:44 Sodium 142 mmol/L (137-145) 12/27/18 01:44 Potassium 4.0 mmol/L (3.6-5.0) 12/27/18 01:44 Chloride 91.5 mmol/L (98-107) L 12/27/18 01:44 Carbon Dioxide 25 mmol/L (22-30) 12/27/18 01:44 Anion Gap 30 mmol/L 12/27/18 01:44 BUN 76 mg/dL (7-17) H 12/27/18 01:44 Creatinine 12.5 mg/dL (0.7-1.2) H 12/27/18 01:44 Estimated GFR 4 ml/min 12/27/18 01:44 BUN/Creatinine Ratio 6 % 12/27/18 01:44 Glucose 181 mg/dL (65-100) H 12/27/18 01:44 Calcium 9.4 mg/dL (8.4-10.2) 12/27/18 01:44 Magnesium 2.30 mg/dL (1.7-2.3) 12/27/18 01:44 Total Bilirubin 0.40 mg/dL (0.1-1.2) 12/27/18 01:44 AST 32 units/L (5-40) 12/27/18 01:44 ALT 20 units/L (7-56) 12/27/18 01:44 Alkaline Phosphatase 104 units/L (35-129) 12/27/18 01:44 Total Creatine Kinase 486 units/L (30-135) H 12/27/18 09:21 CK-MB (CK-2) 26.0 ng/mL (0.0-4.0) H 12/27/18 09:21 CK-MB (CK-2) Rel Index 5.3 (0-4) H 12/27/18 09:21 Troponin T 0.695 ng/mL (0.00-0.029) H* D 12/27/18 09:21 NT-Pro-B Natriuret Pep 24214 pg/mL (0-900) H 12/27/18 01:44 Total Protein 7.5 g/dL (6.3-8.2) 12/27/18 01:44 Albumin 4.5 g/dL (3.9-5) 12/27/18 01:44 Albumin/Globulin Ratio 1.5 % 12/27/18 01:44 Triglycerides 146 mg/dL (2-149) 12/27/18 01:44 Cholesterol 175 mg/dL (50-199) 12/27/18 01:44 LDL Cholesterol Direct 114 mg/dL (50-130) 12/27/18 01:44 HDL Cholesterol 46 mg/dL (40-59) 12/27/18 01:44 Cholesterol/HDL Ratio 3.80 % 12/27/18 01:44 Hepatitis A IgM Ab Non-reactive (NonReactive) 12/27/18 05:50 Hep Bs Antigen Non-reactive (Negative) 12/27/18 05:50 Hep B Core IgM Ab Non-reactive (NonReactive) 12/27/18 05:50 Hepatitis C Antibody Non-reactive (NonReactive) 12/27/18 05:50 Active Medications - Current Medications Current Medications: Generic Name Dose Route Start Last Admin Trade Name Freq PRN Reason Stop Dose Admin Acetaminophen 650 mg 12/27/18 02:58 12/27/18 06:26 Tylenol PO 650 mg Q4H PRN Administration Pain MILD(1-3)/Fever >100.5/VILLAFUERTE Aspirin 325 mg 12/27/18 11:00 Aspirin PO QDAY [facility] Atorvastatin Calcium 40 mg 12/27/18 22:00 Lipitor PO QHS [facility] Azithromycin 500 mg 12/27/18 10:00 Zithromax PO QDAY [facility] Dextrose 0 ml 12/27/18 02:58 D50w (25gm) Syringe IV Q30MIN PRN Hypoglycemia Protocol Enoxaparin Sodium 30 mg 12/27/18 10:00 Enoxaparin SUB-Q QDAY [facility] Hydralazine HCl 50 mg 12/27/18 14:00 Apresoline PO TID [facility] Nitroglycerin/Dextrose 50 mg in 250 mls @ 3 mls/hr 12/27/18 02:00 12/27/18 04:00 Tridil Drip 50mg/250ml IV 60 mcg/min TITR [facility] 18 mls/hr Titration Protocol 10 MCG/MIN Sodium Chloride 100 mls @ 999 mls/hr 12/27/18 05:29 Nacl 0.9% IV SUZETTE PRN Hypotension Ceftriaxone Sodium 1 gm in 50 mls @ 100 mls/hr 12/27/18 10:00 Rocephin/Ns 1 Gm/50 Ml IV Q24HR [facility] Protocol Insulin Human Lispro 0 unit 12/27/18 07:30 Humalog SUB-Q ACHS [facility] Protocol Metoprolol Tartrate 50 mg 12/27/18 14:00 Metoprolol PO TID [facility] Nitroglycerin 1 inch 12/27/18 12:00 Nitro-Bid 2% TP TIDNTG [facility] Protocol Ondansetron HCl 4 mg 12/27/18 02:58 Zofran IV Q8H PRN Nausea And Vomiting Sodium Chloride 10 ml 12/27/18 10:00 Sodium Chloride Flush Syringe 10 Ml IV BID [facility] Sodium Chloride 10 ml 12/27/18 02:58 Sodium Chloride Flush Syringe 10 Ml IV PRN PRN LINE FLUSH
[2018-12-27] MEDS: METOPROLOL TARTRATE 50 MG TAB PO SCH ×2 (15:44→21:36)
[2018-12-27] MEDS: hydrALAZINE 25 MG TAB PO SCH ×2 (15:45→21:36)
[2018-12-27] MEDS: NITROGLYCERIN 2% OINT 1 GM TP SCH (16:59)
[2018-12-27] MEDS: INSULIN LISPRO 100 UNIT/ML SUB-Q SCH ×2 (19:08→21:32)
[2018-12-27] MEDS: ASPIRIN 325 MG TAB PO SCH (21:31)
[2018-12-27] MEDS: AZITHROMYCIN 250 MG TAB PO SCH (21:31)
[2018-12-27] MEDS: cefTRIAXone/NS 1 GM/50 ML 1 GM/50 ML BAG IV SCH (21:31)
[2018-12-28] MEDS: INSULIN LISPRO 100 UNIT/ML SUB-Q SCH ×5 (05:23→21:36)
[2018-12-28] MEDS: NITROGLYCERIN 2% OINT 1 GM TP SCH ×4 (05:23→18:08)
[2018-12-28] MEDS ORDERED: REGADENOSON 0.4 MG/5 ML INJ IV ONE (07:18)
--- NOTE | 2018-12-28 09:27 | Treadmill Report ---
LEXISCAN STRESS TEST REPORT REASON FOR STUDY: Abnormal cardiac enzymes. STRESS TEST PROTOCOL: The patient received 0.4 mg of Lexiscan intravenously over 10 seconds. Tc-99m Tetrofosmin was subsequently injected. Baseline ECG, normal sinus rhythm with nonspecific T-wave abnormalities. Lexiscan ECG, no ischemic changes. No chest pain. No arrhythmias. IMPRESSION: Electrocardiographically negative stress test. Nuclear imaging report to follow. JOB# [id number] AGO/NTS
[2018-12-28] MEDS: hydrALAZINE 25 MG TAB PO SCH ×3 (10:51→20:57)
[2018-12-28] MEDS: AZITHROMYCIN 250 MG TAB PO SCH (10:51)
[2018-12-28] MEDS: METOPROLOL TARTRATE 50 MG TAB PO SCH ×3 (10:51→20:56)
[2018-12-28] MEDS: ASPIRIN 325 MG TAB PO SCH (11:01)
[2018-12-28] MEDS: cefTRIAXone/NS 1 GM/50 ML 1 GM/50 ML BAG IV SCH (11:01)
[2018-12-28 11:41] LABS: Basophils # (Auto) 0.1 K/mm3 (0.0-0.1); Basophils % (Auto) 0.8 % (0.0-1.8); Eosinophils # (Auto) 0.1 K/mm3 (0.0-0.4); Eosinophils % (Auto) 0.8 % (0.0-4.3); Hematocrit 39.6 % (30.3-42.9); Lymphocytes # (Auto) 1.2 K/mm3 (1.2-5.4); Lymphocytes % (Auto) 8.9 % (13.4-35.0); Mean Corpuscular HGB Conc 33 % (30-34); Mean Corpuscular Volume 99 fl (79-97); Monocytes # (Auto) 0.7 K/mm3 (0.0-0.8); Monocytes % (Auto) 5.2 % (0.0-7.3); Platelet Count 211 K/mm3 (140-440); Red Blood Count 4.01 M/mm3 (3.65-5.03); Red Cell Distribution Width 15.9 % (13.2-15.2)
--- NOTE | 2018-12-28 11:41 | Progress Note ---
Assessment and Plan Echo reviewed - EF 50-55%, pseudonormalization, mild pulm HTN RVSP 40mmHg. S/p lexiscan MPI stress test this AM which showed med sized partially reversible inferior and inferoapical defect, EF 57%. Coronary angiography recommended for definitive diagnosis. Indications, potential risks and benefits of LHC reviewed with pt and she is agreeable to proceed with LHC in AM. NPO after MN. The patient has been seen in conjunction with Dr. Flood who agrees with the assessment and plan of care. - Patient Problems (1) Acute heart failure with preserved ejection fraction (HFpEF) Current Visit: Yes Status: Acute (2) Chest pain Current Visit: Yes Status: Acute (3) Non-STEMI (non-ST elevated myocardial infarction) Current Visit: Yes Status: Acute (4) Cough Current Visit: Yes Status: Acute (5) ESRD (end stage renal disease) on dialysis Current Visit: Yes Status: Chronic (6) HTN (hypertension) Current Visit: Yes Status: Chronic Qualifiers: Hypertension type: essential hypertension Qualified Code(s): I10 - Essential (primary) hypertension (7) Diabetes mellitus Current Visit: Yes Status: Chronic Qualifiers: Diabetes mellitus type: type 2 Subjective Date of service: 12/28/18 Principal diagnosis: hf; cp Interval history: for stress test, no current complaints. Objective Last Vital Signs Temp 98.1 F 12/28/18 04:54 Pulse 71 12/28/18 04:54 Resp 20 12/28/18 04:54 BP 141/66 12/28/18 08:51 Pulse Ox 99 12/28/18 04:54 - Physical Examination General: No Apparent Distress HEENT: Positive: EOMI, Normocephaly, Mucus Membranes Moist Neck: Positive: neck supple, trachea midline, JVD/HJR (elevated) Cardiac: Positive: Reg Rate and Rhythm, S1/S2 Lungs: Positive: Decreased Breath Sounds Neuro: Positive: Grossly Intact Abdomen: Positive: Soft, Active Bowel Sounds. Negative: Tender Skin: Positive: Clear. Negative: Rash Musculoskeletal: Normal Range of Motion Extremities: Present: normal. Absent: edema - Imaging and Cardiology EKG: image reviewed - Telemetry EKG Rhythm: Sinus Rhythm - EKG Sinus rhythms and dysrhythmias: sinus tachycardia
[2018-12-28] MEDS ORDERED: SODIUM CHLORIDE 0.9% 500 ML 500 ML IV SCH (12:00)
[2018-12-28 12:03] LABS: Calcium 9.6 mg/dL (8.4-10.2)
--- NOTE | 2018-12-28 12:43 | Treadmill Report ---
THALLIUM REPORT REASON FOR STUDY: Chest pain. IMAGING PROTOCOL: The patient received 10 mCi of technetium Tetrofosmin for rest imaging, and 28 mCi of technetium Tetrofosmin for stress imaging. Imaging for all procedures was completed 30-90 minutes following the initial injection of Technetium 99m Tetrofosmin. SPECT imaging in the 180 degree arc was performed in the right anterior oblique projection. Computerized reconstruction of the images was performed for analysis. NUCLEAR IMAGING RESULTS: Technically limited study due to soft tissue attenuation artifact. Normal left ventricular cavity size with no change from stress to rest. Distribution of radionuclide within the left ventricle revealed a medium-sized area of photo-induction involving the inferior and inferoapical region. The degree of photo-induction is moderate. Rest imaging showed partial improvement in this defect. Gated SPECT imaging revealed normal global LV systolic function with septal hypokinesis. The calculated left ventricular ejection fraction is 57%. IMPRESSION: Technically limited study. Medium size, partially reversible inferior and inferoapical defect. Normal global LV systolic function with septal hypokinesis. EF 57%. These findings suggest a small area of prior infarction with [id number] residual ischemia in the right coronary artery territory. JOB# [id number] ALEX/TRI RIGGS
[2018-12-28] MEDS: ACETAMINOPHEN 325 MG TAB PO PRN (13:00)
--- NOTE | 2018-12-28 16:26 | Progress Note ---
Assessment and Plan - Patient Problems (1) Flash pulmonary edema Current Visit: Yes Status: Acute Plan to address problem: pulmonary edema I reviewed chest x-ray with evidence of pulmonary edema received urgent dialysis was initiated Continue supplemental oxygen as needed we will wean oxygen as tolerated (2) Diabetes 1.5, managed as type 2 Current Visit: No Status: Chronic Plan to address problem: Diabetes mellitus type 2 Continue medications Monitor fingerstick (3) ESRD (end stage renal disease) on dialysis Current Visit: Yes Status: Chronic Plan to address problem: End-stage renal disease on dialysis continue dialysis TTS (4) HTN (hypertension) Current Visit: Yes Status: Chronic Qualifiers: Hypertension type: essential hypertension Qualified Code(s): I10 - Essential (primary) hypertension Plan to address problem: Hypertension uncontrolled We'll plan to optimize volume status with dialysis Resume medication Subjective Principal diagnosis: hf; cp Interval history: 63-year-old lady with medical history significant for hypertension, diabetes mellitus type 2, end stage renal disease on hemodialysis on Wednesday S via a right AVF admitted with complaints of shortness of breath and chest pain also with elevated blood pressure, last dialysis was Wednesday she denies any missed treatments Denies any complete dialysis session She reports associated orthopnea, PND she denies any fevers chills denies any na usea vomiting diarrhea denies any headaches denies any edema patient required BiPAP on admission Patient seen today s/p stress test -Repeat HD tomorrow. Objective - Vital Signs Vital signs: Vital Signs - 12hr 12/28/18 12/28/18 12/28/18 04:54 08:29 08:36 Temperature 98.1 F Pulse Rate 71 Respiratory 20 Rate Blood Pressure 151/72 159/70 153/68 O2 Sat by Pulse 99 Oximetry 12/28/18 12/28/18 12/28/18 08:46 08:47 08:49 Temperature Pulse Rate Respiratory Rate Blood Pressure 154/70 159/71 146/75 O2 Sat by Pulse Oximetry 12/28/18 12/28/18 12/28/18 08:51 10:00 11:10 Temperature 97.4 F L Pulse Rate 78 Respiratory 20 18 Rate Blood Pressure 141/66 160/73 O2 Sat by Pulse 78 L 100 Oximetry 12/28/18 14:36 Temperature Pulse Rate 78 Respiratory Rate Blood Pressure O2 Sat by Pulse Oximetry - General Appearance General appearance: well-developed, well-nourished EENT: ATNC, PERRL Neck: no JVD Respiratory: Present: Clear to Ascultation Cardiology: regular, S1S2 Gastrointestinal: normal, normoactive bowel sounds Integumentary: no rash Neurologic: alert and oriented x3, CN 3-12 intact Psychiatric: mood/affect appropriate - Lab 12/28/18 11:00 12/28/18 11:00 Most recent lab results Calcium 9.6 mg/dL (8.4-10.2) 12/28/18 11:00 Magnesium 2.30 mg/dL (1.7-2.3) 12/27/18 01:44 - Imaging Chest x-ray: image reviewed (CXR reviewed with pulmonary edema. ) Medications & Allergies - Medications Allergies/Adverse Reactions: Allergies No Known Allergies Allergy (Verified 10/14/17 12:18) Home Medications: Home Medications Medication Instructions Recorded Confirmed Last Taken Type glipiZIDE [Glucotrol] 5 mg PO QDAY 10/11/12 03/26/15 03/26/15 History ALBUTEROL Inhaler (OR & NICU) 2 puff IH QID PRN #1 inha 02/22/13 03/26/15 Unknown Rx [ProAir HFA Inhaler] Acetaminophen/Codeine [Tylenol 1 tab PO Q6H PRN #12 tab 03/07/17 Unknown Rx /Codeine # 3 tab] Cyclobenzaprine HCl [Flexeril 5 MG 5 mg PO BID PRN #10 tab 10/14/17 Unknown Rx TAB] HYDROcodone/APAP 5-325 [[place] 1 each PO Q6HR PRN #12 tablet 10/14/17 Unknown Rx 5/325] ALBUTEROL NEB's [Proventil 0.083% 2.5 mg IH Q6H PRN #90 vial 01/01/18 Unknown Rx NEBS] levoFLOXacin [Levaquin TAB] 500 mg PO QDAY #7 tablet 01/01/18 Unknown Rx predniSONE [Deltasone] 2 tab PO QDAY 5 Days #10 tab 01/01/18 Unknown Rx Active Medications: Generic Name Dose Route Start Last Admin Trade Name Freq PRN Reason Stop Dose Admin Acetaminophen 650 mg 12/27/18 02:58 12/28/18 13:00 Tylenol PO 650 mg Q4H PRN Administration Pain MILD(1-3)/Fever >100.5/VILLAFUERTE Aspirin 325 mg 12/27/18 11:00 12/28/18 11:01 Aspirin PO 325 mg QDAY STERLING Administration Atorvastatin Calcium 40 mg 12/27/18 22:00 12/27/18 21:33 Lipitor PO 40 mg QHS STERLING Administration Azithromycin 500 mg 12/27/18 10:00 12/28/18 10:51 Zithromax PO 12/31/18 10:01 500 mg QDAY ST[place]ING Administration Dextrose 0 ml 12/27/18 02:58 D50w (25gm) Syringe IV Q30MIN PRN Hypoglycemia Protocol Heparin Sodium (Porcine) 5,000 unit 12/28/18 22:00 Heparin SUB-Q Q12HR STERLING Hydralazine HCl 50 mg 12/27/18 14:00 12/28/18 14:36 Apresoline PO 50 mg TID STERLING Administration Sodium Chloride 100 mls @ 999 mls/hr 12/27/18 05:29 Nacl 0.9% IV SUZETTE PRN Hypotension Ceftriaxone Sodium 1 gm in 50 mls @ 100 mls/hr 12/27/18 10:00 12/28/18 11:01 Rocephin/Ns 1 Gm/50 Ml IV 100 mls/hr Q24HR STERLING Administration Protocol Sodium Chloride 500 mls @ 50 mls/hr 12/28/18 12:00 Nacl 0.9% 500 Ml IV 12/28/18 21:59 DIRECT STERLING Insulin Human Lispro 0 unit 12/27/18 07:30 12/28/18 16:01 Humalog SUB-Q Not Given ACHS STERLING Protocol Metoprolol Tartrate 50 mg 12/27/18 14:00 12/28/18 14:36 Metoprolol PO 50 mg TID STERLING Administration Nitroglycerin 1 inch 12/27/18 12:00 12/28/18 11:01 Nitro-Bid 2% TP 1 inch TIDNTG STERLING Administration Protocol Ondansetron HCl 4 mg 12/27/18 02:58 Zofran IV Q8H PRN Nausea And Vomiting Sodium Chloride 10 ml 12/27/18 10:00 12/28/18 10:52 Sodium Chloride Flush Syringe 10 Ml IV 10 ml BID STERLING Administration Sodium Chloride 10 ml 12/27/18 02:58 Sodium Chloride Flush Syringe 10 Ml IV PRN PRN LINE FLUSH
--- NOTE | 2018-12-28 18:06 | Progress Note ---
Assessment and Plan Assessment and plan: Patient is a 63 -year-old AA woman with a history of hypertention, type 2 DM, end-stage renal disease on hemodialysis Wednesday, who presents to [facility] ED with SOB, chest pains and productive whitish phlegm cough. * pCXR IMPRESSION: 1. Mild edema. 2. Atelectasis versus developing pneumonia right base. 3. Pleural-based density left chest. CT chest recommended for further evaluation. * CT chest without contrast IMPRESSION: 1. Patchy infiltrates bilaterally typical of multifocal pneumonia to include atypical organisms. 2. Small basilar effusions with associated atelectasis. 3. Probable reactive m ediastinal nodes. 4. Changes of chronic renal failure including atrophy and small nonobstructing stones. 5. Indeterminate lesion upper pole left kidney. Acute respiratory failure, needing Non-Invasive Positive Pressure Ventilation: weaned off bipap, stable on NC, so i downgraded to medical floor Multifocal Pneumonia, bilateral: treat with iv abx Fluid overload: treat with ultrafiltration HD Chest pain with Type 2 OH: Cardiology consulted, input noted, stress test positive, [facility] tomorrow Hypertension Malignancy with urgency/uncontrolled: change NTG drip to paste and add iv prn hydralazine Diabetes mellitus: ssi, ada, accuchecks ESRD needing HD: Nephrology to manage DVT ppx: sq heparin full code Disposition: continue inpatient care, [facility] tomorrow History Interval history: Patient was seen and examined. Follow-up on current diagnosis of respiratory failure. No overnight events reported to me. Patient denies any chest pain, shortness breath, nausea/vomiting or severe headaches. Imaging, nursing note, chart, labs and old chart reviewed. Discussed with patient. Hospitalist Physical - Physical exam Narrative exam: Gen: WDWN, NAD, Awake, Alert, Orientated HEENT: NCAT, EOMI, PERRL, OP Clear Neck: supple, no adenopathy, no thyromegaly, no JVD CVS/Heart: RRR, normal S1S2, pulses present bilaterally Chest/Lungs: diminished bs bilaterally, Symmetrical chest expansion, good air entry bilaterally GI/Abdomen: soft, NTND, good bowel sounds, no guarding or rebound /Bladder: no suprapubic tenderness, no CVA or paraspinal tenderness Extermity/Skin: no c/c/e, no obvious rash MSK: FROM x 4 Neuro: CN 2-12 grossly intact, no new focal deficits Psych: calm - Constitutional Vitals: Temp Pulse Resp BP Pulse Ox 98.2 F 65 20 126/60 98 12/28/18 16:52 12/28/18 16:52 12/28/18 16:52 12/28/18 16:52 12/28/18 16:52 General appearance: Present: no acute distress Results - Labs CBC & Chem 7: 12/28/18 11:00 12/28/18 11:00 Labs: Laboratory Last Values WBC 13.9 K/mm3 (4.5-11.0) H 12/28/18 11:00 RBC 4.01 M/mm3 (3.65-5.03) 12/28/18 11:00 Hgb 13.0 gm/dl (10.1-14.3) 12/28/18 11:00 Hct 39.6 % (30.3-42.9) 12/28/18 11:00 MCV 99 fl (79-97) H 12/28/18 11:00 MCH 33 pg (28-32) H 12/28/18 11:00 MCHC 33 % (30-34) 12/28/18 11:00 RDW 15.9 % (13.2-15.2) H 12/28/18 11:00 Plt Count 211 K/mm3 (140-440) 12/28/18 11:00 Lymph % (Auto) 8.9 % (13.4-35.0) L 12/28/18 11:00 [place] % (Auto) 5.2 % (0.0-7.3) 12/28/18 11:00 Eos % (Auto) 0.8 % (0.0-4.3) 12/28/18 11:00 Baso % (Auto) 0.8 % (0.0-1.8) 12/28/18 11:00 Lymph # 1.2 K/mm3 (1.2-5.4) 12/28/18 11:00 [place] # 0.7 K/mm3 (0.0-0.8) 12/28/18 11:00 Eos # 0.1 K/mm3 (0.0-0.4) 12/28/18 11:00 Baso # 0.1 K/mm3 (0.0-0.1) 12/28/18 11:00 Seg Neutrophils % 84.3 % (40.0-70.0) H 12/28/18 11:00 Seg Neutrophils # 11.7 K/mm3 (1.8-7.7) H 12/28/18 11:00 PT 12.7 Sec. (12.2-14.9) 12/27/18 01:44 INR 0.96 (0.87-1.13) 12/27/18 01:44 APTT 29.2 Sec. (24.2-36.6) 12/27/18 01:44 Sodium 140 mmol/L (137-145) 12/28/18 11:00 Potassium 4.6 mmol/L (3.6-5.0) 12/28/18 11:00 Chloride 92.8 mmol/L (98-107) L 12/28/18 11:00 Carbon Dioxide 22 mmol/L (22-30) 12/28/18 11:00 Anion Gap 30 mmol/L 12/28/18 11:00 BUN 58 mg/dL (7-17) H 12/28/18 11:00 Creatinine 9.8 mg/dL (0.7-1.2) H 12/28/18 11:00 Estimated GFR 5 ml/min 12/28/18 11:00 BUN/Creatinine Ratio 6 % 12/28/18 11:00 Glucose 247 mg/dL (65-100) H 12/28/18 11:00 POC Glucose 123 (70-105) H 12/28/18 16:07 Calcium 9.6 mg/dL (8.4-10.2) 12/28/18 11:00 Magnesium 2.30 mg/dL (1.7-2.3) 12/27/18 01:44 Total Bilirubin 0.40 mg/dL (0.1-1.2) 12/27/18 01:44 AST 32 units/L (5-40) 12/27/18 01:44 ALT 20 units/L (7-56) 12/27/18 01:44 Alkaline Phosphatase 104 units/L (35-129) 12/27/18 01:44 Total Creatine Kinase 486 units/L (30-135) H 12/27/18 09:21 CK-MB (CK-2) 26.0 ng/mL (0.0-4.0) H 12/27/18 09:21 CK-MB (CK-2) Rel Index 5.3 (0-4) H 12/27/18 09:21 Troponin T 0.695 ng/mL (0.00-0.029) H* D 12/27/18 09:21 NT-Pro-B Natriuret Pep 50817 pg/mL (0-900) H 12/27/18 01:44 Total Protein 7.5 g/dL (6.3-8.2) 12/27/18 01:44 Albumin 4.5 g/dL (3.9-5) 12/27/18 01:44 Albumin/Globulin Ratio 1.5 % 12/27/18 01:44 Triglycerides 146 mg/dL (2-149) 12/27/18 01:44 Cholesterol 175 mg/dL (50-199) 12/27/18 01:44 LDL Cholesterol Direct 114 mg/dL (50-130) 12/27/18 01:44 HDL Cholesterol 46 mg/dL (40-59) 12/27/18 01:44 Cholesterol/HDL Ratio 3.80 % 12/27/18 01:44 Hepatitis A IgM Ab Non-reactive (NonReactive) 12/27/18 05:50 Hep Bs Antigen Non-reactive (Negative) 12/27/18 05:50 Hep B Core IgM Ab Non-reactive (NonReactive) 12/27/18 05:50 Hepatitis C Antibody Non-reactive (NonReactive) 12/27/18 05:50 Active Medications - Current Medications Current Medications: Generic Name Dose Route Start Last Admin Trade Name Ulisesq PRN Reason Stop Dose Admin Acetaminophen 650 mg 12/27/18 02:58 12/28/18 13:00 Tylenol PO 650 mg Q4H PRN Administration Pain MILD(1-3)/Fever >100.5/VILLAFUERTE Aspirin 325 mg 12/27/18 11:00 12/28/18 11:01 Aspirin PO 325 mg QDAY ST[place]ING Administration Atorvastatin Calcium 40 mg 12/27/18 22:00 12/27/18 21:33 Lipitor PO 40 mg QHS STERLING Administration Azithromycin 500 mg 12/27/18 10:00 12/28/18 10:51 Zithromax PO 12/31/18 10:01 500 mg QDAY STER[place]ING Administration Dextrose 0 ml 12/27/18 02:58 D50w (25gm) Syringe IV Q30MIN PRN Hypoglycemia Protocol Heparin Sodium (Porcine) 5,000 unit 12/28/18 22:00 Heparin SUB-Q Q12HR STERLING Hydralazine HCl 50 mg 12/27/18 14:00 12/28/18 14:36 Apresoline PO 50 mg TID STERLING Administration Sodium Chloride 100 mls @ 999 mls/hr 12/27/18 05:29 Nacl 0.9% IV SUZETTE PRN Hypotension Ceftriaxone Sodium 1 gm in 50 mls @ 100 mls/hr 12/27/18 10:00 12/28/18 11:01 Rocephin/Ns 1 Gm/50 Ml IV 100 mls/hr Q24HR STERLING Administration Protocol Sodium Chloride 500 mls @ 50 mls/hr 12/28/18 12:00 Nacl 0.9% 500 Ml IV 12/28/18 21:59 DIRECT STERLING Insulin Human Lispro 0 unit 12/27/18 07:30 12/28/18 16:01 Humalog SUB-Q Not Given ACHS STERLING Protocol Metoprolol Tartrate 50 mg 12/27/18 14:00 12/28/18 14:36 Metoprolol PO 50 mg TID STERLING Administration Nitroglycerin 1 inch 12/27/18 12:00 12/28/18 11:01 Nitro-Bid 2% TP 1 inch TIDNTG STERLING Administration Protocol Ondansetron HCl 4 mg 12/27/18 02:58 Zofran IV Q8H PRN Nausea And Vomiting Sodium Chloride 10 ml 12/27/18 10:00 12/28/18 10:52 Sodium Chloride Flush Syringe 10 Ml IV 10 ml BID STERLING Administration Sodium Chloride 10 ml 12/27/18 02:58 Sodium Chloride Flush Syringe 10 Ml IV PRN PRN LINE FLUSH
[2018-12-28] MEDS: diphenhydrAMINE 50 MG/ML VIAL IV PRN (22:04)
[2018-12-28] MEDS: HEPARIN 5,000 UNIT/1 ML VIAL SUB-Q SCH (22:05)
[2018-12-29] MEDS: NITROGLYCERIN 2% OINT 1 GM TP SCH ×2 (05:02→13:00)
[2018-12-29 06:09] LABS: Basophils % (Auto) 0.4 % (0.0-1.8); Eosinophils # (Auto) 0.3 K/mm3 (0.0-0.4); Eosinophils % (Auto) 3.1 % (0.0-4.3); Hematocrit 34.5 % (30.3-42.9); Hemoglobin 11.6 gm/dl (10.1-14.3); Lymphocytes # (Auto) 1.6 K/mm3 (1.2-5.4); Lymphocytes % (Auto) 18.3 % (13.4-35.0); Mean Corpuscular HGB Conc 34 % (30-34); Mean Corpuscular Volume 99 fl (79-97); Monocytes # (Auto) 0.7 K/mm3 (0.0-0.8); Monocytes % (Auto) 8.3 % (0.0-7.3); Platelet Count 171 K/mm3 (140-440); Red Blood Count 3.51 M/mm3 (3.65-5.03)
[2018-12-29] MEDS: INSULIN LISPRO 100 UNIT/ML SUB-Q SCH ×2 (06:15→13:00)
[2018-12-29 06:17] LABS: INR 1.11 (0.87-1.13)
[2018-12-29 06:29] LABS: Calcium 9.1 mg/dL (8.4-10.2)
[2018-12-29] MEDS ORDERED: DEXTROSE 50% IN WATER (25GM) 50 ML SYRINGE IV ONE (07:48)
[2018-12-29] MEDS: hydrALAZINE 25 MG TAB PO SCH ×2 (10:07→22:41)
[2018-12-29] MEDS: HEPARIN 5,000 UNIT/1 ML VIAL SUB-Q SCH ×2 (10:08→22:29)
[2018-12-29] MEDS: ASPIRIN 325 MG TAB PO SCH ×2 (10:08→10:25)
[2018-12-29] MEDS: METOPROLOL TARTRATE 50 MG TAB PO SCH ×2 (10:08→22:41)
[2018-12-29] MEDS: cefTRIAXone/NS 1 GM/50 ML 1 GM/50 ML BAG IV SCH (10:08)
[2018-12-29] MEDS: AZITHROMYCIN 250 MG TAB PO SCH (10:09)
[2018-12-29] MEDS ORDERED: ASPIRIN 325 MG TAB ONE (10:20)
[2018-12-29] MEDS ORDERED: SODIUM CHLORIDE 0.9% 500 ML 500 ML IV SCH (11:00)
[2018-12-29] MEDS ORDERED: HEPARIN/NS 5000 UNIT/500ML 1,000 ML IR ONE (11:22)
[2018-12-29] MEDS ORDERED: NITROGLYCERIN SYRINGE 3 ML ONE (11:23)
[2018-12-29] MEDS: MIDAZOLAM 2 MG/2 ML INJ ONE ×2 (11:41→11:46)
[2018-12-29] MEDS: fentaNYL 100 MCG/2 ML INJ ONE ×2 (11:41→11:46)
[2018-12-29] MEDS: LIDOCAINE (2%) 20 MG/1 ML VIAL 20 ML MDV INFILTRATI ONE ×3 (11:41→11:48)
[2018-12-29] MEDS: HEPARIN 10,000 UNITS/10 ML VIAL ONE ×2 (11:56→12:10)
[2018-12-29] MEDS ORDERED: NITROGLYCERIN SYRINGE 0 ML ONE (12:02)
--- NOTE | 2018-12-29 12:29 | Progress Note ---
Assessment and Plan S/p [facility] this AM with PCI. Initiate DAPT and Imdur. Tx to telemetry. Monitor overnight with likely d/c home in AM. The patient has been seen in conjunction with Dr. Flood who agrees with the assessment and plan of care. - Patient Problems (1) Acute heart failure with preserved ejection fraction (HFpEF) Current Visit: Yes Status: Acute (2) Chest pain Current Visit: Yes Status: Acute (3) Non-STEMI (non-ST elevated myocardial infarction) Current Visit: Yes Status: Acute (4) Cough Current Visit: Yes Status: Acute (5) ESRD (end stage renal disease) on dialysis Current Visit: Yes Status: Chronic (6) HTN (hypertension) Current Visit: Yes Status: Chronic Qualifiers: Hypertension type: essential hypertension Qualified Code(s): I10 - Essential (primary) hypertension (7) Diabetes mellitus Current Visit: Yes Status: Chronic Qualifiers: Diabetes mellitus type: type 2 (8) CAD (coronary artery disease) Current Visit: Yes Status: Chronic (9) Stented coronary artery Current Visit: Yes Status: Chronic Subjective Date of service: 12/29/18 Principal diagnosis: hf; cp Interval history: for [facility] today. Objective Last Vital Signs Temp 97.9 F 12/29/18 06:53 Pulse 64 12/29/18 10:07 Resp 18 12/29/18 06:53 BP 130/61 12/29/18 10:07 Pulse Ox 98 12/29/18 06:53 - Physical Examination General: No Apparent Distress HEENT: Positive: EOMI, Normocephaly, Mucus Membranes Moist Neck: Positive: neck supple, trachea midline, JVD/HJR (elevated) Cardiac: Positive: Reg Rate and Rhythm, S1/S2 Lungs: Positive: Decreased Breath Sounds Neuro: Positive: Grossly Intact Abdomen: Positive: Soft, Active Bowel Sounds. Negative: Tender Skin: Positive: Clear. Negative: Rash Musculoskeletal: Normal Range of Motion Extremities: Present: normal. Absent: edema - Labs and Meds Coagulation 12/29/18 Range/Units 04:55 PT 14.2 (12.2-14.9) Sec. INR 1.11 (0.87-1.13) CBC 12/29/18 Range/Units 04:55 WBC 9.0 (4.5-11.0) K/mm3 RBC 3.51 L (3.65-5.03) M/mm3 Hgb 11.6 (10.1-14.3) gm/dl Hct 34.5 (30.3-42.9) % Plt Count 171 (140-440) K/mm3 Lymph # 1.6 (1.2-5.4) K/mm3 [place] # 0.7 (0.0-0.8) K/mm3 Eos # 0.3 (0.0-0.4) K/mm3 Baso # 0.0 (0.0-0.1) K/mm3 Comprehensive Metabolic Panel 12/29/18 Range/Units 04:55 Sodium 139 (137-145) mmol/L Potassium 4.4 (3.6-5.0) mmol/L Chloride 93.0 L (98-107) mmol/L Carbon Dioxide 23 (22-30) mmol/L BUN 71 H (7-17) mg/dL Creatinine 11.5 H (0.7-1.2) mg/dL Glucose 103 H (65-100) mg/dL Calcium 9.1 (8.4-10.2) mg/dL - Imaging and Cardiology EKG: image reviewed Echo: report reviewed (EF 50-55%, pseudonormalization, mild pulm HTN RVSP 40mmHg. ) - Telemetry EKG Rhythm: Sinus Rhythm - EKG Sinus rhythms and dysrhythmias: sinus tachycardia
[2018-12-29] MEDS ORDERED: CLOPIDOGREL 300 MG TAB ONE (12:30)
[2018-12-29] MEDS ORDERED: ALUM-MAG HYDROXIDE-SIMETHICONE 200-200-20MG/5ML ORAL LIQD 30 ML ONE (12:30)
--- NOTE | 2018-12-29 12:51 | Cardiac Catherization Report ---
PROCEDURE: Left heart cath/IFR, PCI and IVUS. CLINICAL INFORMATION: This is a 63-year-old patient, on hemodialysis, hypertension, hyperlipidemia, presents with shortness of breath with acute diastolic dysfunction and non-ST elevation UT. Procedure was done with moderate sedation. Total sedation time was 37 minutes, started at 11:48 a.m. and finished at 12:25 p.m. Procedure was done via the right common femoral artery, sterile technique, local anesthesia, 5-German groin sheath inserted. Left system engaged JL4 catheter. On fluoroscopy, there is calcification of left and right coronary system noted. Left system engaged with JL4 catheter, left main is large and patent, but diffuse 10% calcified. LAD is a large caliber vessel, proximal has mild luminal irregularities with calcification. Mid has a focal 50% lesion. Diagonal 1 is a small to medium caliber vessel, patent. Diagonal 2 is a small to medium caliber and patent. Rest of LAD is patent, is a wrap around LAD. Circumflex is a large caliber vessel, proximal 80% calcified and OM1 has a focal 90% lesion. Circ in the AV groove diffuse 30% with an OM2 small caliber vessel that is patent. RCA engaged with JR4 catheter, is a medium caliber calcified dominant vessel, proximal is patent, mild irregularities, mid diffuse 20-30%, at the crux is a 50% lesion. Distal LAD is patent with mild irregularities. PDA, PLV are small, long vessels. They are patent with mild luminal irregularities. There are RV branches coming off in the midportion. They have ostial disease. LV gram done in DEREK and MCGILL view shows normal LV function, LVEDP of 28 mmHg, LV is 150. Aortic is 150/65. No gradient across the aortic valve on pullback. 5-German catheters taken over a guidewire. Fractional flow reserve of the LAD was performed first. 1. A 5-German groin sheath was changed out to a 6-German groin sheath, engaged the left system with EBU 3.5 guide catheter. 2. Used a fractional flow reserve wire and an equalization was done distal to the stent and IFR was done, which was 0.92, which is nonsignificant. Removed IFR wire, then proceeded with: Percutaneous/intravascular ultrasound of circumflex and obtuse marginal 1. 1. I used the same EBU 3.5 guiding catheter to engage the left system. 2. Used a short [place] wire into the distal OM1. 3. Then predilated the OM with a 2.5 x 12 mm balloon at 10 atmospheres. 4. Then ballooned the proximal circumflex with 2.5 x 12 mm balloon at 15 atmospheres. 5. Intravascular ultrasound showed calcified left main and circumflex and OM. Distal reference vessel of 2.75 x 3.0 in the OM and then the circumflex calcified 4.0 vessel. 6. Then stented the OM1 with a drug-eluting Xience 2.75 x 15 at 12 atmospheres. 7. Then stented the proximal circumflex with a drug-eluting Xience 3.5 x 15, inflated at 16 atmospheres. 8. Excellent angiographic result. No dissection or perforation noted. Reduced stenosis from 90% down to 0%. 9. Remove coronary wire, multiple angiograms, continued MI 3 flow, reduced stenosis 90% to 0%. No dissection, perforation. 10. A 6-German guiding catheter taken out over a guidewire, 6-German groin sheath sewn in. No hematoma, no bleeding. SUMMARY: 1. Successful PCI of the proximal circumflex calcified with drug-eluting Xience 3.5 x 15 and PCI of obtuse marginal 1 with a drug-eluting Xience 2.75 x 15, mid circumflex after OM1 has 30%, OM2 patent. 2. Left main calcified 10%, patent, LAD mid 50%, with negative fractional flow reserve of 0.92. 3. RCA proximal mild luminal irregularities. Mid diffuse 20%. The crux 50%. Small PDA, PLV patent vessels, diffuse disease. 4. Normal LV function. 5. The patient was loaded with Plavix with daily aspirin, Plavix, nitrates, beta blockers and treat medically and post-catheterization dialysis. Discussed in detail with the patient. JOB# [id number] FATIMAH/TRI
[2018-12-29] MEDS: ACETAMINOPHEN 325 MG TAB PO PRN (14:00)
[2018-12-29] MEDS ORDERED: ACETAMINOPHEN 325 MG TAB ONE (14:05)
--- NOTE | 2018-12-29 16:16 | Progress Note ---
Assessment and Plan - Patient Problems (1) Flash pulmonary edema Current Visit: Yes Status: Acute Plan to address problem: pulmonary edema I reviewed chest x-ray with evidence of pulmonary edema received urgent dialysis was initiated Continue supplemental oxygen as needed we will wean oxygen as tolerated (2) Diabetes 1.5, managed as type 2 Current Visit: No Status: Chronic Plan to address problem: Diabetes mellitus type 2 Continue medications Monitor fingerstick (3) ESRD (end stage renal disease) on dialysis Current Visit: Yes Status: Chronic Plan to address problem: End-stage renal disease on dialysis continue dialysis TTS (4) HTN (hypertension) Current Visit: Yes Status: Chronic Qualifiers: Hypertension type: essential hypertension Qualified Code(s): I10 - Essential (primary) hypertension Plan to address problem: Hypertension uncontrolled We'll plan to optimize volume status with dialysis Resume medication Subjective Principal diagnosis: hf; cp Interval history: 63-year-old lady with medical history significant for hypertension, diabetes mellitus type 2, end stage renal disease on hemodialysis on Wednesday S via a right AVF admitted with complaints of shortness of breath and chest pain also with elevated blood pressure, last dialysis was Wednesday she denies any missed treatments Denies any complete dialysis session She reports associated orthopnea, PND she denies any fevers chills denies any na usea vomiting diarrhea denies any headaches denies any edema patient required BiPAP on admission Patient seen today s/p cardiac cath I attest I saw the patient on HD. Objective - Vital Signs Vital signs: Vital Signs - 12hr 12/29/18 12/29/18 12/29/18 05:02 06:53 09:50 Temperature 97.9 F Pulse Rate 64 65 Respiratory 18 Rate Blood Pressure 130/61 120/65 O2 Sat by Pulse 98 98 Oximetry 12/29/18 12/29/18 12/29/18 10:07 13:00 13:16 Temperature Pulse Rate 64 62 61 Respiratory 19 15 Rate Blood Pressure 130/61 144/50 140/57 O2 Sat by Pulse 100 100 Oximetry 12/29/18 12/29/18 12/29/18 13:30 13:45 14:00 Temperature Pulse Rate 60 63 62 Respiratory 15 13 18 Rate Blood Pressure 124/46 125/53 114/48 O2 Sat by Pulse 100 100 99 Oximetry 12/29/18 12/29/18 12/29/18 14:30 15:00 15:02 Temperature Pulse Rate 62 61 Respiratory 18 17 15 Rate Blood Pressure 114/48 130/59 O2 Sat by Pulse 99 99 Oximetry 12/29/18 12/29/18 12/29/18 15:06 15:10 15:15 Temperature Pulse Rate 60 64 64 Respiratory 15 16 16 Rate Blood Pressure 132/51 121/52 121/52 O2 Sat by Pulse 100 100 100 Oximetry 12/29/18 12/29/18 15:30 15:45 Temperature Pulse Rate 64 62 Respiratory 17 17 Rate Blood Pressure 135/56 140/53 O2 Sat by Pulse 100 100 Oximetry - General Appearance General appearance: well-developed, well-nourished EENT: ATNC, PERRL, mucous membranes moist Neck: no JVD Respiratory: Present: Clear to Ascultation Cardiology: regular, S1S2 Gastrointestinal: normal, normoactive bowel sounds Integumentary: no rash Neurologic: alert and oriented x3, CN 3-12 intact Psychiatric: mood/affect appropriate - Lab 12/29/18 04:55 12/29/18 04:55 Most recent lab results Calcium 9.1 mg/dL (8.4-10.2) 12/29/18 04:55 Magnesium 2.30 mg/dL (1.7-2.3) 12/27/18 01:44 - Imaging Chest x-ray: image reviewed Medications & Allergies - Medications Allergies/Adverse Reactions: Allergies No Known Allergies Allergy (Verified 10/14/17 12:18) Home Medications: Home Medications Medication Instructions Recorded Confirmed Last Taken Type glipiZIDE [Glucotrol] 5 mg PO QDAY 10/11/12 03/26/15 03/26/15 History ALBUTEROL Inhaler (OR & NICU) 2 puff IH QID PRN #1 inha 02/22/13 03/26/15 Unknown Rx [ProAir HFA Inhaler] Acetaminophen/Codeine [Tylenol 1 tab PO Q6H PRN #12 tab 03/07/17 Unknown Rx /Codeine # 3 tab] Cyclobenzaprine HCl [Flexeril 5 MG 5 mg PO BID PRN #10 tab 10/14/17 Unknown Rx TAB] HYDROcodone/APAP 5-325 [[place] 1 each PO Q6HR PRN #12 tablet 10/14/17 Unknown Rx 5/325] ALBUTEROL NEB's [Proventil 0.083% 2.5 mg IH Q6H PRN #90 vial 01/01/18 Unknown Rx NEBS] levoFLOXacin [Levaquin TAB] 500 mg PO QDAY #7 tablet 01/01/18 Unknown Rx predniSONE [Deltasone] 2 tab PO QDAY 5 Days #10 tab 01/01/18 Unknown Rx Active Medications: Generic Name Dose Route Start Last Admin Trade Name Freq PRN Reason Stop Dose Admin Acetaminophen 650 mg 12/27/18 02:58 12/29/18 14:00 Tylenol PO 650 mg Q4H PRN Administration Pain MILD(1-3)/Fever >100.5/VILLAFUERTE Aspirin 81 mg 12/30/18 10:00 Baby Aspirin PO QDAY [facility] Atorvastatin Calcium 40 mg 12/27/18 22:00 12/28/18 22:05 Lipitor PO 40 mg QHS [place] Administration Azithromycin 500 mg 12/27/18 10:00 12/29/18 10:09 Zithromax PO 12/31/18 10:01 Not Given QDAY [facility] Clopidogrel Bisulfate 75 mg 12/30/18 10:00 Plavix PO QDAY [facility] Dextrose 0 ml 12/27/18 02:58 12/29/18 03:59 D50w (25gm) Syringe IV 15 ml Q30MIN PRN Administration Hypoglycemia Protocol Diphenhydramine HCl 25 mg 12/28/18 21:19 12/28/18 22:04 Benadryl IV 25 mg Q6H PRN Administration Itching Heparin Sodium (Porcine) 5,000 unit 12/28/18 22:00 12/29/18 10:08 Heparin SUB-Q Not Given Q12HR [facility] Hydralazine HCl 50 mg 12/27/18 14:00 12/29/18 10:07 Apresoline PO Not Given TID [facility] Sodium Chloride 100 mls @ 999 mls/hr 12/27/18 05:29 Nacl 0.9% IV SUZETTE PRN Hypotension Ceftriaxone Sodium 1 gm in 50 mls @ 100 mls/hr 12/27/18 10:00 12/29/18 10:08 Rocephin/Ns 1 Gm/50 Ml IV Not Given Q24HR [facility] Protocol Sodium Chloride 500 mls @ 50 mls/hr 12/29/18 11:00 Nacl 0.9% 500 Ml IV DIRECT [facility] Insulin Human Lispro 0 unit 12/27/18 07:30 12/29/18 13:00 Humalog SUB-Q Not Given ACHS [facility] Protocol Isosorbide Mononitrate 30 mg 12/30/18 10:00 Imdur PO QDAY [facility] Metoprolol Tartrate 50 mg 12/27/18 14:00 12/29/18 10:08 Metoprolol PO Not Given TID [facility] Nitroglycerin 1 inch 12/27/18 12:00 12/29/18 13:00 Nitro-Bid 2% [facility] Protocol Ondansetron HCl 4 mg 12/27/18 02:58 Zofran IV Q8H PRN Nausea And Vomiting Sodium Chloride 10 ml 12/27/18 10:00 12/29/18 13:01 Sodium Chloride Flush Syringe 10 Ml IV Not Given BID [facility] Sodium Chloride 10 ml 12/27/18 02:58 Sodium Chloride Flush Syringe 10 Ml IV PRN PRN LINE FLUSH
--- NOTE | 2018-12-29 16:48 | Progress Note ---
Assessment and Plan Assessment and plan: Patient is a 63 -year-old AA woman with a history of hypertention, type 2 DM, end-stage renal disease on hemodialysis Wednesday, who presents to [facility] ED with SOB, chest pains and productive whitish phlegm cough. * pCXR IMPRESSION: 1. Mild edema. 2. Atelectasis versus developing pneumonia right base. 3. Pleural-based density left chest. CT chest recommended for further evaluation. * CT chest without contrast IMPRESSION: 1. Patchy infiltrates bilaterally typical of multifocal pneumonia to include atypical organisms. 2. Small basilar effusions with associated atelectasis. 3. Probable reactive m ediastinal nodes. 4. Changes of chronic renal failure including atrophy and small nonobstructing stones. 5. Indeterminate lesion upper pole left kidney. Acute respiratory failure, needing Non-Invasive Positive Pressure Ventilation: weaned off bipap, stable on NC, so i downgraded to medical floor Multifocal Pneumonia, bilateral: treat with iv abx Fluid overload: treat with ultrafiltration HD Chest pain with Type 2 NC: Cardiology consulted, input noted, stress test positive, [facility] tomorrow Hypertension Malignancy with urgency/uncontrolled: change NTG drip to paste and add iv prn hydralazine Diabetes mellitus: ssi, ada, accuchecks ESRD needing HD: Nephrology to manage DVT ppx: sq heparin full code Disposition: continue inpatient care, [facility] +PCI, discharge tomorrow History Interval history: Patient was seen and examined. Follow-up on current diagnosis of respiratory failure. No overnight events reported to me. Patient denies any chest pain, shortness breath, nausea/vomiting or severe headaches. Imaging, nursing note, chart, labs and old chart reviewed. Discussed with patient. Hospitalist Physical - Physical exam Narrative exam: Gen: WDWN, NAD, Awake, Alert, Orientated HEENT: NCAT, EOMI, PERRL, OP Clear Neck: supple, no adenopathy, no thyromegaly, no JVD CVS/Heart: RRR, normal S1S2, pulses present bilaterally Chest/Lungs: diminished bs bilaterally, Symmetrical chest expansion, good air entry bilaterally GI/Abdomen: soft, NTND, good bowel sounds, no guarding or rebound /Bladder: no suprapubic tenderness, no CVA or paraspinal tenderness Extermity/Skin: no c/c/e, no obvious rash MSK: FROM x 4 Neuro: CN 2-12 grossly intact, no new focal deficits Psych: calm - Constitutional Vitals: Temp Pulse Resp BP Pulse Ox 97.5 F L 59 L 16 153/69 100 12/29/18 15:50 12/29/18 16:10 12/29/18 15:50 12/29/18 16:10 12/29/18 15:45 General appearance: Present: no acute distress Results - Labs CBC & Chem 7: 12/29/18 04:55 12/29/18 04:55 Labs: Laboratory Last Values WBC 9.0 K/mm3 (4.5-11.0) 12/29/18 04:55 RBC 3.51 M/mm3 (3.65-5.03) L 12/29/18 04:55 Hgb 11.6 gm/dl (10.1-14.3) 12/29/18 04:55 Hct 34.5 % (30.3-42.9) 12/29/18 04:55 MCV 99 fl (79-97) H 12/29/18 04:55 MCH 33 pg (28-32) H 12/29/18 04:55 MCHC 34 % (30-34) 12/29/18 04:55 RDW 16.0 % (13.2-15.2) H 12/29/18 04:55 Plt Count 171 K/mm3 (140-440) 12/29/18 04:55 Lymph % (Auto) 18.3 % (13.4-35.0) 12/29/18 04:55 [place] % (Auto) 8.3 % (0.0-7.3) H 12/29/18 04:55 Eos % (Auto) 3.1 % (0.0-4.3) 12/29/18 04:55 Baso % (Auto) 0.4 % (0.0-1.8) 12/29/18 04:55 Lymph # 1.6 K/mm3 (1.2-5.4) 12/29/18 04:55 [place] # 0.7 K/mm3 (0.0-0.8) 12/29/18 04:55 Eos # 0.3 K/mm3 (0.0-0.4) 12/29/18 04:55 Baso # 0.0 K/mm3 (0.0-0.1) 12/29/18 04:55 Seg Neutrophils % 69.9 % (40.0-70.0) 12/29/18 04:55 Seg Neutrophils # 6.3 K/mm3 (1.8-7.7) 12/29/18 04:55 PT 14.2 Sec. (12.2-14.9) 12/29/18 04:55 INR 1.11 (0.87-1.13) 12/29/18 04:55 APTT 29.2 Sec. (24.2-36.6) 12/27/18 01:44 Activated Clotting Time 169 (74-137) H 12/29/18 14:49 Sodium 139 mmol/L (137-145) 12/29/18 04:55 Potassium 4.4 mmol/L (3.6-5.0) 12/29/18 04:55 Chloride 93.0 mmol/L (98-107) L 12/29/18 04:55 Carbon Dioxide 23 mmol/L (22-30) 12/29/18 04:55 Anion Gap 27 mmol/L 12/29/18 04:55 BUN 71 mg/dL (7-17) H 12/29/18 04:55 Creatinine 11.5 mg/dL (0.7-1.2) H 12/29/18 04:55 Estimated GFR 4 ml/min 12/29/18 04:55 BUN/Creatinine Ratio 6 % 12/29/18 04:55 Glucose 103 mg/dL (65-100) H 12/29/18 04:55 POC Glucose 98 (70-105) 12/29/18 08:18 Calcium 9.1 mg/dL (8.4-10.2) 12/29/18 04:55 Magnesium 2.30 mg/dL (1.7-2.3) 12/27/18 01:44 Total Bilirubin 0.40 mg/dL (0.1-1.2) 12/27/18 01:44 AST 32 units/L (5-40) 12/27/18 01:44 ALT 20 units/L (7-56) 12/27/18 01:44 Alkaline Phosphatase 104 units/L (35-129) 12/27/18 01:44 Total Creatine Kinase 486 units/L (30-135) H 12/27/18 09:21 CK-MB (CK-2) 26.0 ng/mL (0.0-4.0) H 12/27/18 09:21 CK-MB (CK-2) Rel Index 5.3 (0-4) H 12/27/18 09:21 Troponin T 0.695 ng/mL (0.00-0.029) H* D 12/27/18 09:21 NT-Pro-B Natriuret Pep 12808 pg/mL (0-900) H 12/27/18 01:44 Total Protein 7.5 g/dL (6.3-8.2) 12/27/18 01:44 Albumin 4.5 g/dL (3.9-5) 12/27/18 01:44 Albumin/Globulin Ratio 1.5 % 12/27/18 01:44 Triglycerides 146 mg/dL (2-149) 12/27/18 01:44 Cholesterol 175 mg/dL (50-199) 12/27/18 01:44 LDL Cholesterol Direct 114 mg/dL (50-130) 12/27/18 01:44 HDL Cholesterol 46 mg/dL (40-59) 12/27/18 01:44 Cholesterol/HDL Ratio 3.80 % 12/27/18 01:44 Hepatitis A IgM Ab Non-reactive (NonReactive) 12/27/18 05:50 Hep Bs Antigen Non-reactive (Negative) 12/27/18 05:50 Hep B Core IgM Ab Non-reactive (NonReactive) 12/27/18 05:50 Hepatitis C Antibody Non-reactive (NonReactive) 12/27/18 05:50 Active Medications - Current Medications Current Medications: Generic Name Dose Route Start Last Admin Trade Name Freq PRN Reason Stop Dose Admin Acetaminophen 650 mg 12/27/18 02:58 12/29/18 14:00 Tylenol PO 650 mg Q4H PRN Administration Pain MILD(1-3)/Fever >100.5/VILLAFUERTE Aspirin 81 mg 12/30/18 10:00 Baby Aspirin PO QDAY [facility] Atorvastatin Calcium 40 mg 12/27/18 22:00 12/28/18 22:05 Lipitor PO 40 mg QHS [place] Administration Azithromycin 500 mg 12/27/18 10:00 12/29/18 10:09 Zithromax PO 12/31/18 10:01 Not Given QDAY [facility] Clopidogrel Bisulfate 75 mg 12/30/18 10:00 Plavix PO QDAY [facility] Dextrose 0 ml 12/27/18 02:58 12/29/18 03:59 D50w (25gm) Syringe IV 15 ml Q30MIN PRN Administration Hypoglycemia Protocol Diphenhydramine HCl 25 mg 12/28/18 21:19 12/28/18 22:04 Benadryl IV 25 mg Q6H PRN Administration Itching Heparin Sodium (Porcine) 5,000 unit 12/28/18 22:00 12/29/18 10:08 Heparin SUB-Q Not Given Q12HR [facility] Hydralazine HCl 50 mg 12/27/18 14:00 12/29/18 10:07 Apresoline PO Not Given TID [facility] Sodium Chloride 100 mls @ 999 mls/hr 12/27/18 05:29 Nacl 0.9% IV SUZETTE PRN Hypotension Ceftriaxone Sodium 1 gm in 50 mls @ 100 mls/hr 12/27/18 10:00 12/29/18 10:08 Rocephin/Ns 1 Gm/50 Ml IV Not Given Q24HR [facility] Protocol Sodium Chloride 500 mls @ 50 mls/hr 12/29/18 11:00 Nacl 0.9% 500 Ml IV DIRECT [facility] Insulin Human Lispro 0 unit 12/27/18 07:30 12/29/18 13:00 Humalog SUB-Q Not Given ACHS [facility] Protocol Isosorbide Mononitrate 30 mg 12/30/18 10:00 Imdur PO QDAY [facility] Metoprolol Tartrate 50 mg 12/27/18 14:00 12/29/18 10:08 Metoprolol PO Not Given TID [facility] Nitroglycerin 1 inch 12/27/18 12:00 12/29/18 13:00 Nitro-Bid 2% TP Not Given TIDNTG [facility] Protocol Ondansetron HCl 4 mg 12/27/18 02:58 Zofran IV Q8H PRN Nausea And Vomiting Sodium Chloride 10 ml 12/27/18 10:00 12/29/18 13:01 Sodium Chloride Flush Syringe 10 Ml IV Not Given BID [facility] Sodium Chloride 10 ml 12/27/18 02:58 Sodium Chloride Flush Syringe 10 Ml IV PRN PRN LINE FLUSH
[2018-12-29] MEDS: diphenhydrAMINE 50 MG/ML VIAL IV PRN (22:29)
[2018-12-30] MEDS: METOPROLOL TARTRATE 50 MG TAB PO SCH (03:18)
[2018-12-30] MEDS: hydrALAZINE 25 MG TAB PO SCH (03:18)
[2018-12-30] MEDS: INSULIN LISPRO 100 UNIT/ML SUB-Q SCH ×3 (03:18→11:31)
[2018-12-30 08:07] LABS: Basophils % (Auto) 0.4 % (0.0-1.8); Eosinophils # (Auto) 0.2 K/mm3 (0.0-0.4); Eosinophils % (Auto) 2.1 % (0.0-4.3); Hematocrit 40.1 % (30.3-42.9); Hemoglobin 13.6 gm/dl (10.1-14.3); Mean Corpuscular HGB Conc 34 % (30-34); Mean Corpuscular Volume 99 fl (79-97); Monocytes # (Auto) 0.8 K/mm3 (0.0-0.8); Platelet Count 173 K/mm3 (140-440); Red Blood Count 4.07 M/mm3 (3.65-5.03)
[2018-12-30 08:48] LABS: Creatine Kinase MB 3.4 ng/mL (0.0-4.0)
[2018-12-30 08:49] LABS: Calcium 9.4 mg/dL (8.4-10.2)
[2018-12-30] MEDS ORDERED: ASPIRIN 81 MG TAB CHEW PO SCH (10:00)
[2018-12-30] MEDS ORDERED: METOPROLOL TARTRATE 50 MG TAB PO SCH (10:00)
[2018-12-30] MEDS ORDERED: CLOPIDOGREL 75 MG TAB PO SCH (10:00)
[2018-12-30] MEDS ORDERED: hydrALAZINE 25 MG TAB PO SCH (10:00)
[2018-12-30] MEDS: AZITHROMYCIN 250 MG TAB PO SCH (11:30)
--- NOTE | 2018-12-30 11:30 | Progress Note ---
Assessment and Plan S/p LHC with PCI yesterday. Currently stable cardiac status. Cont present cardiac management, including ASA 81, Plavix, lipitor, Imdur, lopressor. Pt may discharge home from cardiology standpoint. Follow up in our [place] office with Dr. Flood on 01/10/2019 @ 3:15PM. The patient has been seen in conjunction with Dr. Flood who agrees with the assessment and plan of care. - Patient Problems (1) Acute heart failure with preserved ejection fraction (HFpEF) Current Visit: Yes Status: Acute (2) Chest pain Current Visit: Yes Status: Resolved (3) Non-STEMI (non-ST elevated myocardial infarction) Current Visit: Yes Status: Acute (4) Cough Current Visit: Yes Status: Acute (5) ESRD (end stage renal disease) on dialysis Current Visit: Yes Status: Chronic (6) HTN (hypertension) Current Visit: Yes Status: Chronic Qualifiers: Hypertension type: essential hypertension Qualified Code(s): I10 - Essential (primary) hypertension (7) Diabetes mellitus Current Visit: Yes Status: Chronic Qualifiers: Diabetes mellitus type: type 2 (8) CAD (coronary artery disease) Current Visit: Yes Status: Chronic (9) Stented coronary artery Current Visit: Yes Status: Chronic Subjective Date of service: 12/30/18 Principal diagnosis: hf; cp Interval history: pt resting in bed, no current complaints. in SR. Objective Last Vital Signs Temp 99.0 F 12/30/18 07:54 Pulse 62 12/30/18 07:54 Resp 18 12/30/18 07:54 BP 116/51 12/30/18 07:54 Pulse Ox 97 12/30/18 07:54 - Physical Examination General: No Apparent Distress HEENT: Positive: EOMI, Normocephaly, Mucus Membranes Moist Neck: Positive: neck supple, trachea midline, JVD/HJR (elevated) Cardiac: Positive: Reg Rate and Rhythm, S1/S2 Lungs: Positive: Decreased Breath Sounds Neuro: Positive: Grossly Intact Abdomen: Positive: Soft, Active Bowel Sounds. Negative: Tender Skin: Positive: Clear. Negative: Rash Incision: Cardiac Cath Site (right groin, c/d/i no bleeding or hematoma) Musculoskeletal: Normal Range of Motion Extremities: Present: normal. Absent: edema - Labs and Meds Cardiac Enzymes 12/30/18 Range/Units 07:47 CK-MB (CK-2) 3.4 (0.0-4.0) ng/mL CBC 12/30/18 Range/Units 07:47 WBC 8.2 (4.5-11.0) K/mm3 RBC 4.07 (3.65-5.03) M/mm3 Hgb 13.6 (10.1-14.3) gm/dl Hct 40.1 (30.3-42.9) % Plt Count 173 (140-440) K/mm3 Lymph # 1.0 L (1.2-5.4) K/mm3 [place] # 0.8 (0.0-0.8) K/mm3 Eos # 0.2 (0.0-0.4) K/mm3 Baso # 0.0 (0.0-0.1) K/mm3 Comprehensive Metabolic Panel 12/30/18 Range/Units 07:47 Sodium 136 L (137-145) mmol/L Potassium 4.4 (3.6-5.0) mmol/L Chloride 93.7 L (98-107) mmol/L Carbon Dioxide 22 (22-30) mmol/L BUN 43 H (7-17) mg/dL Creatinine 8.4 H (0.7-1.2) mg/dL Glucose 156 H (65-100) mg/dL Calcium 9.4 (8.4-10.2) mg/dL - Imaging and Cardiology EKG: image reviewed Echo: report reviewed (EF 50-55%, pseudonormalization, mild pulm HTN RVSP 40mmHg. ) - Telemetry EKG Rhythm: Sinus Rhythm - EKG Sinus rhythms and dysrhythmias: sinus tachycardia
[2018-12-30] MEDS: HEPARIN 5,000 UNIT/1 ML VIAL SUB-Q SCH (11:31)
[2018-12-30] MEDS: diphenhydrAMINE 50 MG/ML VIAL IV PRN (11:31)
[2018-12-30 12:01] VITALS: BP 124/59
--- NOTE | 2018-12-30 12:37 | Discharge Summary ---
Providers - Providers Date of Admission: 12/27/18 02:58 Date of discharge: 12/30/18 Attending physician: JOHNATHAN DAMON 12/27/18 01:37 Consult to Physician [CONS] Urgent Comment: Dr. Rowley spoke with Dr. Baeza @ 0312 Consulting Provider: LALY GIRALDO Physician Instructions: Reason For Exam: esrd 12/27/18 02:58 Consult to Physician [CONS] Routine Comment: Consulting Provider: NARDA CORTES Physician Instructions: Reason For Exam: cp 12/29/18 Consult to Cardiac Rehabilitation [CONS] Routine Reason For Exam: post pci Primary care physician: JACKIE GOMEZ Hospitalization Condition: Stable Hospital course: Patient is a 63 -year-old AA woman with a history of hypertention, type 2 DM, end-stage renal disease on hemodialysis Wednesday, who presents to [facility] ED with SOB, chest pains and productive whitish phlegm cough. * pCXR IMPRESSION: 1. Mild edema. 2. Atelectasis versus developing pneumonia r ight base. 3. Pleural-based density left chest. CT chest recommended for further evaluation. * CT chest without contrast IMPRESSION: 1. Patchy infiltrates bilaterally typical of multifocal pneumonia to include atypical organisms. 2. Small basilar effusions with associated atelectasis. 3. Probable reactive mediastinal nodes. 4. Changes of chronic renal failure including atrophy and small nonobstructing stones. 5. Indeterminate lesion upper pole left kidney. * [facility] 12/29/[address] Ceballos: 1. Successful PCI of the proximal circumflex calcified with drug-eluting Xience 3.5 x 15 and PCI of obtuse marginal 1 with drug-eluting Xience 2.75 x 15, mid circumflex after OM1 has 30%, OM2 patent Discharge Diagnoses: NSTEMI s/p PCI circ and obtuse with DELLA, poa Acute Diastolic Heart failure, poa Acute respiratory failure, resolved s/p Non-Invasive Positive Pressure Ventilation: weaned off bipap, off NC, Sepsis due to Multifocal Pneumonia, bilateral, poa: treat with iv abx Fluid overload: treat with ultrafiltration HD Hypertension Malignancy with urgency/uncontrolled: change NTG drip to paste and add iv prn hydralazine Diabetes mellitus: ssi, ada, accuchecks ESRD needing HD: Nephrology to manage Disposition: DC-01 TO HOME OR SELFCARE Time spent for discharge: 35 minutes Core Measure Documentation - Palliative Care Palliative Care/ Comfort Measures: Not Applicable - Core Measures Any of the following diagnoses?: acute RI, heart failure - VTE Discharge Requirements Deep Vein Thrombosis/Pulmonary Embolism Present on Admission: No Has pt received <5 days of overlap therapy or INR<2.0: No Anticoagulant overlap therapy prescribed at discharge: No Contraindication No Overlap Therapy order at DC: Not Indicated - Acute RI Discharge Requirements Aspirin at discharge: Yes SANDIE/ARB for LVSD if EF <40%: Yes Reason for no SANDIE/ARB: Renal impairment Beta jalyn at discharge: Yes Statin for LDL = or >100 mg/dl on DC: Yes - Heart Failure Discharge Requirements SANDIE/ARB for LVSD if EF <40%: No Reason for no SANDIE/ARB: Renal impairment Beta jalyn at discharge: Yes Exam - Physical Exam Narrative exam: Gen: WDWN, NAD, Awake, Alert, Orientated HEENT: NCAT, EOMI, PERRL, OP Clear Neck: supple, no adenopathy, no thyromegaly, no JVD CVS/Heart: RRR, normal S1S2, pulses present bilaterally Chest/Lungs: diminished bs bilaterally, Symmetrical chest expansion, good air entry bilaterally GI/Abdomen: soft, NTND, good bowel sounds, no guarding or rebound /Bladder: no suprapubic tenderness, no CVA or paraspinal tenderness Extermity/Skin: no c/c/e, no obvious rash MSK: FROM x 4 Neuro: CN 2-12 grossly intact, no new focal deficits Psych: calm - Constitutional Vitals: Temp Pulse Resp BP Pulse Ox 98.0 F 66 18 124/59 100 12/30/18 11:17 12/30/18 11:17 12/30/18 11:17 12/30/18 11:17 12/30/18 11:17 Plan Activity: other (no strenous activity unless cleared by Cardiology) Diet: low salt Additional Instructions: S/p LHC with PCI yesterday. Currently stable cardiac status. Cont present cardiac management, including ASA 81, Plavix, lipitor, Imdur, lopressor. Pt may discharge home from cardiology standpoint. Follow up in our [place] office with Dr. Rivera on 01/10/2019 @ 3:15PM. The patient has been seen in conjunction with Dr. Rivera who agrees with the assessment and plan of care. Follow up with: KYLIE RIVERA MD [Staff Physician] - 7 Days (Follow up in our [place] office with Dr. Rivera on 01/10/2019 @ 3:15PM. ) PRIMARY CARE, [Referring] - 3-5 Days Forms: [facility] PCI D/C Instructions Prescriptions: AtorvaSTATin [Lipitor] 40 mg PO QHS #30 tablet hydrALAZINE [Apresoline TAB] 2 tab PO BID #120 tablet Aspirin [Aspirin BABY CHEW TAB] 81 mg PO QDAY #30 tab.chew cefUROXime [Ceftin] 2 tab PO BID #8 tablet ISOSORBIDE MONOnitrate [Imdur ER] 60 mg PO QDAY #30 tab.er.24h Metoprolol [Lopressor TAB] 50 mg PO BID #60 tablet Clopidogrel [Plavix] 75 mg PO QDAY #30 tablet Azithromycin [Zithromax TAB] 250 mg PO QDAY #2 tablet
--- NOTE | 2018-12-30 16:00 | Progress Note ---
Assessment and Plan - Patient Problems (1) Flash pulmonary edema Status: Acute Plan to address problem: pulmonary edema I reviewed chest x-ray with evidence of pulmonary edema received urgent dialysis was initiated Continue supplemental oxygen as needed we will wean oxygen as tolerated (2) Diabetes 1.5, managed as type 2 Status: Chronic Plan to address problem: Diabetes mellitus type 2 Continue medications Monitor fingerstick (3) ESRD (end stage renal disease) on dialysis Status: Chronic Plan to address problem: End-stage renal disease on dialysis continue dialysis TTS (4) HTN (hypertension) Status: Chronic Qualifiers: Hypertension type: essential hypertension Qualified Code(s): I10 - Essential (primary) hypertension Plan to address problem: Hypertension uncontrolled optimize volume status with dialysis Resume medication Subjective Principal diagnosis: hf; cp Interval history: 63-year-old lady with medical history significant for hypertension, diabetes mellitus type 2, end stage renal disease on hemodialysis on Wednesday via a right AVF admitted with complaints of shortness of breath and chest pain also with elevated blood pressure, last dialysis was Wednesday she denies any missed treatments Denies any complete dialysis session She reports associated orthopnea, PND she denies any fevers chills denies any nausea vomiting diarrhea denies any headaches denies any edema patient required BiPAP on admission Patient seen today s/p cardiac cath on 12/29 She is anxious to be discharged Objective - Vital Signs Vital signs: Vital Signs - 12hr 12/30/18 12/30/18 12/30/18 07:54 10:00 11:17 Temperature 99.0 F 98.0 F Pulse Rate 62 67 66 Respiratory 18 18 Rate Blood Pressure 116/51 124/59 O2 Sat by Pulse 97 100 Oximetry - General Appearance General appearance: well-developed, well-nourished EENT: ATNC, PERRL, mucous membranes moist Neck: no JVD Respiratory: Present: Clear to Ascultation Cardiology: regular, S1S2 Gastrointestinal: normal, normoactive bowel sounds Integumentary: no rash Neurologic: alert and oriented x3, CN 3-12 intact Musculoskeletal: deferred Psychiatric: mood/affect appropriate - Lab 12/30/18 07:47 12/30/18 07:47 Most recent lab results Calcium 9.4 mg/dL (8.4-10.2) 12/30/18 07:47 Magnesium 2.30 mg/dL (1.7-2.3) 12/27/18 01:44 - Imaging Chest x-ray: image reviewed (chest x-ray reviewed with edema) Medications & Allergies - Medications Allergies/Adverse Reactions: Allergies No Known Allergies Allergy (Verified 10/14/17 12:18) Home Medications: Home Medications Medication Instructions Recorded Confirmed Last Taken Type ALBUTEROL Inhaler (OR & NICU) 2 puff IH QID PRN #1 inha 02/22/13 03/26/15 Unknown Rx [ProAir HFA Inhaler] Cyclobenzaprine HCl [Flexeril 5 MG 5 mg PO BID PRN #10 tab 10/14/17 Unknown Rx TAB] ALBUTEROL NEB's [Proventil 0.083% 2.5 mg IH Q6H PRN #90 vial 01/01/18 Unknown Rx NEBS] Acetaminophen [Acetaminophen TAB] 1 tab PO Q4H PRN #15 tablet 12/30/18 Unknown Rx Aspirin [Aspirin BABY CHEW TAB] 81 mg PO QDAY #30 tab.chew 12/30/18 Unknown Rx AtorvaSTATin [Lipitor] 40 mg PO QHS #30 tablet 12/30/18 Unknown Rx Azithromycin [Zithromax TAB] 250 mg PO QDAY #2 tablet 12/30/18 Unknown Rx Clopidogrel [Plavix] 75 mg PO QDAY #30 tablet 12/30/18 Unknown Rx ISOSORBIDE MONOnitrate [Imdur ER] 60 mg PO QDAY #30 tab.er.24h 12/30/18 Unknown Rx Metoprolol [Lopressor TAB] 50 mg PO BID #60 tablet 12/30/18 Unknown Rx cefUROXime [Ceftin] 2 tab PO BID #8 tablet 12/30/18 Unknown Rx glipiZIDE [Glucotrol] 5 mg PO QDAY #30 12/30/18 03/26/15 03/26/15 Rx hydrALAZINE [Apresoline TAB] 2 tab PO BID #120 tablet 12/30/18 Unknown Rx
== END 2018-12-30 14:35 | disposition home or self-care (01) | DRG 853 ==
LOC: ED 01:12 → 4A 02:58 → CC1 03:53 → 3A 09:50 → 4A 12-29 16:54
PROVIDERS: ADMIT Internal Medicine; ATTEND Internal Medicine
PROC: 5A09357 Assistance with Respiratory Ventilation, Less than 24 Consecutive Hours, Continuous Positive Airway Pressure (ICD-10-PCS; 2018-12-27)
PROC: 5A1D70Z Performance of Urinary Filtration, Intermittent, Less than 6 Hours Per Day (ICD-10-PCS; 2018-12-27)
PROC: 027135Z Dilation of Coronary Artery, Two Arteries with Two Drug-eluting Intraluminal Devices, Percutaneous Approach (ICD-10-PCS; principal; 2018-12-29)
PROC: 4A023N7 Measurement of Cardiac Sampling and Pressure, Left Heart, Percutaneous Approach (ICD-10-PCS; 2018-12-29)
PROC: B2111ZZ Fluoroscopy of Multiple Coronary Arteries using Low Osmolar Contrast (ICD-10-PCS; 2018-12-29)
PROC: B2151ZZ Fluoroscopy of Left Heart using Low Osmolar Contrast (ICD-10-PCS; 2018-12-29)
PROC: B240ZZ3 Ultrasonography of Single Coronary Artery, Intravascular (ICD-10-PCS; 2018-12-29)
PROC: 4A033BC Measurement of Arterial Pressure, Coronary, Percutaneous Approach (ICD-10-PCS; 2018-12-29)
PROC: 4A0335C Measurement of Arterial Flow, Coronary, Percutaneous Approach (ICD-10-PCS; 2018-12-29)
PROC: 5A1D70Z Performance of Urinary Filtration, Intermittent, Less than 6 Hours Per Day (ICD-10-PCS; 2018-12-29)
DX: A41.9 Sepsis, unspecified organism (principal); I50.31 Acute diastolic (congestive) heart failure; N18.6 End stage renal disease; J96.00 Acute respiratory failure, unspecified whether with hypoxia or hypercapnia; J18.9 Pneumonia, unspecified organism; I21.4 Non-ST elevation (NSTEMI) myocardial infarction; I13.2 Hypertensive heart and chronic kidney disease with heart failure and with stage 5 chronic kidney disease, or end stage renal disease; I25.10 Atherosclerotic heart disease of native coronary artery without angina pectoris; E11.22 Type 2 diabetes mellitus with diabetic chronic kidney disease; Z99.2 Dependence on renal dialysis; Z82.49 Family history of ischemic heart disease and other diseases of the circulatory system; Z83.3 Family history of diabetes mellitus; Z79.51 Long term (current) use of inhaled steroids; Z79.84 Long term (current) use of oral hypoglycemic drugs; Z79.899 Other long term (current) drug therapy
CPT/HCPCS: 36415; 71045; 71250; 78452; 80048; 80053; 80061; 80074; 82550; 82553; 82962; 83735; 83880; 84484; 85025; 85347; 85610; 85730; 87040; 92928; 92929; 92978; 93005; 93010; 93017; 93306; 93458; 93571; 96360; G0378; A9270-GY; A9502; C1725; C1753; C1769; C1874; C1887; C1894; C9600; C9601; J0696; J1200; J1644; J1815; J1956; J2250; J2785; J2930; J3010; J7040; Q9967

== ENCOUNTER 2020-03-15 08:24 | Emergency (ER) | payer MEDICARE ==
[2020-03-15 08:39] VITALS: BP 172/82
--- NOTE | 2020-03-15 08:55 | Emergency Department Report ---
Chief Complaint: Skin/Abscess/Foreign Body Stated Complaint: CACTUS SPLINTS IN HANDS/FINGERS - HPI History of Present Illness: 64-year-old -[place] female presents to the emergency room for concerns of needles from a cactus. Patient states that she picked up a cactus yesterday. Patient reports that she feels like there is fine needle stuck in her hand. Patient states that she went to urgent care they x-rayed her and pulled out a few. Patient thinks that they may have broken off a few on her hand. Patient reports some discomfort but no true pain. Patient denies any drainage no swelling or redness. Patient reports that he placed on antibiotics. - Exam Vital Signs: Vital Signs 03/15/20 08:34 Temperature 98.9 F Pulse Rate 64 Respiratory 18 Rate Blood Pressure 172/82 O2 Sat by Pulse 100 Oximetry Physical Exam: Alert and oriented x3 no acute distress nontoxic in appearance Bilateral hands no swelling appreciated nonerythematous no needles or foreign body able to appreciate. Ambulatory without difficulties MSE screening note: Focused history and physical exam performed. Due to findings the following was ordered: 64-year-old -[place] female presents to the emergency room for concerns of needles from a cactus. Patient states that she picked up a cactus yesterday. Patient reports that she feels like there is fine needle stuck in her hand. Patient states that she went to urgent care they x-rayed her and pulled out a few. Patient thinks that they may have broken off a few on her hand. Patient reports some discomfort but no true pain. Patient denies any drainage no swelling or redness. Patient reports that he placed on antibiotics. Discussed with patient that I am not able to appreciate any of the fine needles. That her hand is not swollen is nonerythematous full range of motion. Discussed with patient to continue with the antibiotics that the urgent care provider placed her on. I discussed with her to soak her hands daily for a few days to see if they would surface up. Discussed with patient if there is any signs of infection such as swelling redness discharge that she needs to follow up to the emergency room or primary care provider. Patient was referred to a Primary healthcare provider. ED Disposition for MSE Disposition: MED SCREENING EXAM-LEFT Is pt being admited?: No Does the pt Need Aspirin: No Condition: Stable Additional Instructions: Continue with your antibiotics. You can soak once a day and see if the spikes will come to the surface. Follow-up with your primary care provider. Referrals: CULLEN CORTEZ JR, MD [Staff Physician] - 3-5 Days MINNIE QUEVEDO FNP [Referring] - 3-5 Days Forms: Work/School Release Form(ED)
== END 2020-03-15 09:20 | disposition left against medical advice (07) ==
LOC: ED 08:24
DX: Z53.21 Procedure and treatment not carried out due to patient leaving prior to being seen by health care provider (principal)

== ENCOUNTER 2020-05-06 09:35 | Emergency (ER) | payer MEDICARE ==
--- NOTE | 2020-05-06 10:22 | Emergency Department Report ---
ED Extremity Problem HPI - General Chief complaint: Extremity Injury, Upper Stated complaint: RT HAND PAIN Time Seen by Provider: 05/06/20 10:10 Source: patient Mode of arrival: Ambulatory Limitations: No Limitations - History of Present Illness Initial comments: Patient is a 65-year-old female presents emergency room with complaints of right middle finger pain and swelling for 4 months. She states over the last few days it has been bothering her more. She states that whenever she flexes the finger down it gets stuck. She states that the same thing happened to her left middle finger and she had to have a cortisone injection by an orthopedic doctor. She denies any fall or injury. She denies any fever, redness, increased warmth, numbness, weakness. She has a past medical history of hypertension, CHF, end- stage renal disease on dialysis. She states that she last went to dialysis on Wednesday and is scheduled to go on Wednesday, tomorrow. - Related Data Previous Rx's Medication Instructions Recorded Last Taken Type Albuterol Mdi (or & Nicu Only) 2 puff IH QID PRN #1 inha 02/22/13 Unknown Rx [ProAir HFA Inhaler] Cyclobenzaprine HCl [Flexeril 5 MG 5 mg PO BID PRN #10 tab 10/14/17 Unknown Rx TAB] ALBUTEROL NEB's [Proventil 0.083% 2.5 mg IH Q6H PRN #90 vial 01/01/18 Unknown Rx NEBS] Acetaminophen [Acetaminophen TAB] 1 tab PO Q4H PRN #15 tablet 12/30/18 Unknown Rx Aspirin [Aspirin BABY CHEW TAB] 81 mg PO QDAY #30 tab.chew 12/30/18 Unknown Rx AtorvaSTATin [Lipitor] 40 mg PO QHS #30 tablet 12/30/18 Unknown Rx Azithromycin [Zithromax TAB] 250 mg PO QDAY #2 tablet 12/30/18 Unknown Rx Clopidogrel [Plavix] 75 mg PO QDAY #30 tablet 12/30/18 Unknown Rx ISOSORBIDE MONOnitrate [Imdur ER] 60 mg PO QDAY #30 tab.er.24h 12/30/18 Unknown Rx Metoprolol [Lopressor TAB] 50 mg PO BID #60 tablet 12/30/18 Unknown Rx cefUROXime [Ceftin] 2 tab PO BID #8 tablet 12/30/18 Unknown Rx glipiZIDE [Glucotrol] 5 mg PO QDAY #30 12/30/18 03/26/15 Rx hydrALAZINE [Apresoline TAB] 2 tab PO BID #120 tablet 12/30/18 Unknown Rx Acetaminophen [Tylenol] 650 mg PO Q8HR PRN #20 capsule 05/06/20 Unknown Rx predniSONE [Deltasone] 20 mg PO QDAY 5 Days #5 tab 05/06/20 Unknown Rx Allergies Allergy/AdvReac Type Severity Reaction Status Date / Time No Known Allergies Allergy Verified 05/06/20 09:48 ED Review of Systems ROS: Stated complaint: RT HAND PAIN Other details as noted in HPI Comment: All other systems reviewed and negative ED Past Medical Hx - Past Medical History Hx Hypertension: Yes Hx Congestive Heart Failure: Yes Hx Diabetes: Yes Hx Renal Disease: Yes (dialysis TThS) Hx HIV: No Additional medical history: dialysis MWF, last treatment Wednesday - Surgical History Additional Surgical History: Ortho, RUE fistula - Social History Smoking Status: Never Smoker Substance Use Type: None - Medications Home Medications: Home Medications Medication Instructions Recorded Confirmed Last Taken Type Albuterol Mdi (or & Nicu Only) 2 puff IH QID PRN #1 inha 02/22/14 03/26/15 Unknown Rx [ProAir HFA Inhaler] Cyclobenzaprine HCl [Flexeril 5 MG 5 mg PO BID PRN #10 tab 10/14/17 Unknown Rx TAB] ALBUTEROL NEB's [Proventil 0.083% 2.5 mg IH Q6H PRN #90 vial 01/01/18 Unknown Rx NEBS] Acetaminophen [Acetaminophen TAB] 1 tab PO Q4H PRN #15 tablet 12/30/18 Unknown Rx Aspirin [Aspirin BABY CHEW TAB] 81 mg PO QDAY #30 tab.chew 12/30/18 Unknown Rx AtorvaSTATin [Lipitor] 40 mg PO QHS #30 tablet 12/30/18 Unknown Rx Azithromycin [Zithromax TAB] 250 mg PO QDAY #2 tablet 12/30/18 Unknown Rx Clopidogrel [Plavix] 75 mg PO QDAY #30 tablet 12/30/18 Unknown Rx ISOSORBIDE MONOnitrate [Imdur ER] 60 mg PO QDAY #30 tab.er.24h 12/30/18 Unknown Rx Metoprolol [Lopressor TAB] 50 mg PO BID #60 tablet 12/30/18 Unknown Rx cefUROXime [Ceftin] 2 tab PO BID #8 tablet 12/30/18 Unknown Rx glipiZIDE [Glucotrol] 5 mg PO QDAY #30 12/30/18 03/26/15 03/26/15 Rx hydrALAZINE [Apresoline TAB] 2 tab PO BID #120 tablet 12/30/18 Unknown Rx Acetaminophen [Tylenol] 650 mg PO Q8HR PRN #20 capsule 05/06/20 Unknown Rx predniSONE [Deltasone] 20 mg PO QDAY 5 Days #5 tab 05/06/20 Unknown Rx ED Physical Exam - General Limitations: No Limitations General appearance: alert, in no apparent distress - Head Head exam: Present: atraumatic, normocephalic - Eye Eye exam: Present: normal appearance - ENT ENT exam: Present: mucous membranes moist - Respiratory Respiratory exam: Absent: respiratory distress, accessory muscle use - Extremities Exam Extremities exam: Present: other (mild ttp of the right middle finger with some associated edema, when pt flexes the finger it gets locked in flexion and then causes a popping noise when she forces extension, no erythema, no increased warmth, no skin changes, neurovascularly intact) - Neurological Exam Neurological exam: Present: alert, oriented X3 - Psychiatric Psychiatric exam: Present: normal affect, normal mood - Skin Skin exam: Present: warm, dry, intact ED Course Vital Signs 05/06/20 10:27 Temperature 98.2 F Pulse Rate 70 Respiratory 18 Rate Blood Pressure 151/67 [Right] O2 Sat by Pulse 100 Oximetry ED Medical Decision Making - Medical Decision Making Patient is a 65-year-old female presents emergency room with complaints of right middle finger pain and swelling for 4 months. She states over the last few days it has been bothering her more. She states that whenever she flexes the finger down it gets stuck. She states that the same thing happened to her left middle finger and she had to have a cortisone injection by an orthopedic doctor. She denies any fall or injury. She denies any fever, redness, increased warmth, numbness, weakness. She has a past medical history of hypertension, CHF, end-stage renal disease on dialysis. She states that she last went to dialysis on Wednesday and is scheduled to go on Wednesday, tomorrow. vss. on exam: mild ttp of the right middle finger with some associated edema, when pt flexes the finger it gets locked in flexion and then causes a popping noise when she forces extension, no erythema, no increased warmth, no skin changes, neurovascularly intact. Examination appears most consistent with trigger finger. She has no signs of septic joint or infectious tenosynovitis. Patient has had no acute trauma. Patient given prescription for Tylenol and low-dose steroids. Discussed the importance of orthopedic follow-up with patient. Advised patient Please take medication as prescribed. Please follow-up with orthopedic doctor. Please use a trigger finger splint [id number] until you are able to see orthopedic doctor. Return to emergency room for new or worsening symptoms. - Differential Diagnosis Tenosynovitis, trigger finger, strain, sprain, arthritis Critical care attestation.: If time is entered above; I have spent that time in minutes in the direct care of this critically ill patient, excluding procedure time. ED Disposition Clinical Impression: Trigger finger Qualifiers: Trigger finger location: middle finger Laterality: right Qualified Code(s): M65.331 - Trigger finger, right middle finger Disposition: DC-01 TO HOME OR SELFCARE Is pt being admited?: No Does the pt Need Aspirin: No Condition: Stable Instructions: Trigger Finger Additional Instructions: Please take medication as prescribed. Please follow-up with orthopedic doctor. Please use a trigger finger splint [id number] until you are able to see orthopedic doctor. Return to emergency room for new or worsening symptoms. Prescriptions: predniSONE [Deltasone] 20 mg PO QDAY 5 Days #5 tab Acetaminophen [Tylenol] 650 mg PO Q8HR PRN #20 capsule PRN Reason: pain Referrals: [facility] [Provider Group] - 2-3 Days JIN EVANS MD [Staff Physician] - 2-3 Days Time of Disposition: 10:29 Print Language: MAURITIAN
[2020-05-06 10:29] VITALS: BP 151/67
== END 2020-05-06 10:49 | disposition home or self-care (01) ==
LOC: ED 09:35
DX: M65.331 Trigger finger, right middle finger (principal); I11.0 Hypertensive heart disease with heart failure; I50.9 Heart failure, unspecified; E11.9 Type 2 diabetes mellitus without complications; Z79.899 Other long term (current) drug therapy
CPT/HCPCS: 99282